=== PATIENT | male | born 1950 | race Caucasian/White ===

== ENCOUNTER 2016-08-20 18:47 | Inpatient (IN) | payer MEDICAID, OTHER ==
--- NOTE | 2016-08-20 18:55 | EDPHY ---
H & P Stated Complaint: R arm red/swollen, IV drug user Time Seen by Provider: 08/20/16 18:55 - Personal History Current Tetanus/Diphtheria Vaccine: Unsure Current Tetanus Diphtheria and Acellular Pertussis (TDAP): Unsure Tetanus Vaccine Date: <10YRS - Medical/Surgical History Hx Asthma: No Hx Chronic Respiratory Disease: No Hx Diabetes: No Hx Cardiac Disease: No Hx Renal Disease: No Hx Cirrhosis: No Hx Alcoholism: No Hx HIV/AIDS: No Hx Splenectomy or Spleen Trauma: No Other PMH: IV drug abuse - Social History Smoking Status: Current every day smoker Constitutional: Initial Vital Signs Temperature (C) 36.3 C 08/20/16 18:52 Heart Rate 72 08/20/16 18:52 Respiratory Rate 19 08/20/16 18:52 Blood Pressure 106/74 08/20/16 18:52 Allergies/Adverse Reactions: No Known Allergies Allergy (Verified 08/20/16 18:52) Home Medications: Medication Instructions Recorded NK [No Known Home Meds] 08/20/16 Medical Decision Making ED Course/Re-evaluation: CHIEF COMPLAINT: Right arm redness HISTORY OF PRESENT ILLNESS: 65-year-old gentleman whose shoots heroin. He skin popped on the right forearm just distal to the elbow. That was a couple days ago according to him. Now he has some redness of the right lateral upper arm biceps area. He denies any fevers or chills. He denies any chest pain shortness of breath. He denies any other symptoms. REVIEW OF SYSTEMS: A 10 point review of systems was performed and is negative with the exception of the elements mentioned in the history of present illness. PHYSICAL EXAM: HR, BP, O2 Sat, RR. Temp noted General Appearance: Alert, well hydrated, appropriate, and non-toxic appearing. Head: Atraumatic without scalp tenderness or obvious injury Eyes: Pupils equal, round, reactive to light and accommodation, EOMI, no trauma , no injection. Ears: Clear bilaterally, no perforation, normal landmarks Nose: Atraumatic, no rhinorrhea, clear. Throat: There is no erythema or exudates, no lesions, normal tonsils, mucus membranes moist. Neck: Supple, 2+ carotid upstroke, nontender, no lymphadenopathy. Respiratory: No retractions, no distress, no wheezes, and no accessory muscle use. Lungs are clear to auscultation bilaterally. Cardiovascular: Regular rate and rhythm, no murmurs, rubs, or gallops. Bilateral carotid, radial, dorsalis pedis, and posterior tibial pulses intact. Good capillary refill all extremities. Gastrointestinal: Abdomen is soft, nontender, non-distended, no masses, no rebound, no guarding, no peritoneal signs. Musculoskeletal: Normal active ROM of all extremities, atraumatic. Neurological: Alert, appropriate, and interactive. The patient has normal DTRs and non-focal cranial nerves, motor, sensory, and cerebellar exam. Skin: Mild erythema and induration of the right lateral upper biceps area. No obvious fluctuance or abscess. No lymphangitis. No evidence of axillary lymph node adenopathy. No rashes, good turgor, no nodules on palpation. Past medical history: Prior abscesses and heroin abuse Past surgical history: Drainage of skin abscesses Family history: Noncontributory Social history: Single, unemployed, abuses injects IV drugs, drinks alcohol and abuses alcohol, uses marijuana, uses cigarettes. DIAGNOSTICS/PROCEDURES/CRITICAL CARE TIME: Study: Ultrasound of the: right upper extremity Indication: cellulitis and induration rule out abscess Results: US scan of the right upper extremity was obtained. The results of the study are lobulated, deep, and complex abscess of the right upper arm. The study was read by the radiologist, Dr. Alonso. I viewed the images myself on the PACS system. DIFFERENTIAL DIAGNOSIS: Includes but is not limited to abscess, cellulitis, lymphangitis, hematoma MEDICAL DECISION MAKING: This patient is not systemically ill. I have given him a doxycycline 100 mg orally. I do not believe that the upper arm cellulitic indurated area is an abscess but I a.m. ordering an ultrasound to be sure that there is nothing to drain at this time. Patient's abscess is deep, lobulated, and complex per ultrasound. This is not appropriate for I&D in the ED and he will need to go to the OR. Surgeon nandini. 1930: Consulted surgeon Madi, he will assess patient in the ED when he gets out of his current surgery. Departure - Departure Disposition: [facility] Inpatient Acute Clinical Impression: Abscess of right upper extremity Condition: Fair
[2016-08-20] MEDS ORDERED: DOXYCYCLINE HYCLATE 100 MG CAP/TAB PO ONE (19:06)
[2016-08-20] MEDS ORDERED: ERTAPENEM 1 GM in NS 100 ML IV ONE (19:25)
[2016-08-20 19:43] LABS: % IMMATURE GRANULYOCYTES 0.4 % (0.0-1.1); ABSOLUTE IMMATURE GRANULOCYTES 0.05 10^3/uL (0.00-0.10); ADD DIFF? NO; ADD MORPH? NO; ADD SCAN? NO; ATYPICAL LYMPHOCYTE FLAG 10 (0-99); FRAGMENT RBC FLAG 0 (0-99); HEMATOCRIT 42.6 % (40.0-51.0); HEMOGLOBIN 14.2 g/dL (13.7-17.5); LEFT SHIFT FLG 10 (0-99); LIPEMIA HEMOLYSIS FLAG 80 (0-99); MEAN CELL HEMOGLOBIN 29.4 pg (27.9-34.1); MEAN CELL HEMOGLOBIN CONCENTR. 33.3 g/dL (32.4-36.7); MEAN CELL VOLUME 88.2 fL (81.5-99.8); PLATELET CLUMPS FLAG 70 (0-99); PLATELET COUNT 252 10^3/uL (150-400); RED BLOOD CELL COUNT 4.83 10^6/uL (4.40-6.38); RED CELL DISTRIBUTION WIDTH 15.7 % (11.5-15.2)
[2016-08-20 19:52] LABS: INR 1.04 (0.83-1.16); PROTIME(PATIENT) 13.5 SEC (12.0-15.0)
[2016-08-20 19:53] LABS: APTT 27.1 SEC (23.0-38.0)
[2016-08-20 20:02] LABS: ANION GAP 12 mEq/L (8-16); CALCIUM 9.2 mg/dL (8.5-10.4); CARBON DIOXIDE 26 mEq/l (22-31); CHLORIDE 102 mEq/L (97-110); CREATININE 0.7 mg/dL (0.7-1.3); GLOMERULAR FILTRATION RATE > 60; GLUCOSE 110 mg/dL (70-100); POTASSIUM 4.6 mEq/L (3.5-5.2); SODIUM 140 mEq/L (134-144)
--- NOTE | 2016-08-20 20:06 | US ---
Ultrasound Right Upper Extremity Nonvascular History: IV drug abuse with pain and swelling. Suspect abscess. Findings: On ultrasound imaging in the right upper arm lower humerus posterior region, there is a com plex fluid collection measuring 4 x 2.5 x 1.3 cm with a lobulated contour and no vascular flow, appro ximately 9 mm deep to the skin, consistent with an abscess. Impression: Right upper arm complex abscess measuring 4 x 2.5 x 1.3 cm. Findings and recommendations discussed with emergency department physician, Floyd Mayberry MD at 19: 34 hours on August 20, 2016. Final report concurs with initial preliminary interpretation.
[2016-08-20] MEDS ORDERED: IOPAMIDOL (ISOVUE-300) 100 ML BTL IV ONE (20:52)
--- NOTE | 2016-08-20 21:54 | CT ---
CT Right Upper Extremity With Intravenous Contrast History: Right upper arm abscess, IVDA. Technique: Axial computed tomographic images of the right upper arm were obtained after the uneventfu l intravenous administration of 90 mL Isovue-300 contrast. Dose reduction technique utilized. Findings: Along the anterolateral aspect of the distal upper arm superficial lateral to the distal hu merus, there is a complex fluid collection with peripheral enhancement and at least bilobed collectio n, measuring a total of 29 x 24 x 15 mm, consistent with abscess recently identified on ultrasound. T his appears probably within the lateral biceps muscle region. There is subcutaneous edema. No definit e evidence of osteomyelitis. Incidental note of partial visualization of centrilobular emphysema in the right lung. Impression: 1. Right upper arm distal lateral intramuscular 29 x 24 x 15 mm complex fluid collection consistent w ith abscess. 2. Centrilobular emphysema. Findings and recommendations discussed with emergency department physician, Floyd Mayberry MD at 214 5 hours on August 20, 2016. Final report concurs with initial preliminary interpretation.
[2016-08-20] MEDS ORDERED: LR 1,000 ML IV SCH (22:00)
[2016-08-20] MEDS: ACETAMINOPHEN 500 MG TAB PO SCH (22:35)
--- NOTE | 2016-08-20 22:43 | GHP ---
[f rep st] PREOP HISTORY AND PHYSICAL DATE OF ADMISSION: 08/20/2016 ADMITTING DIAGNOSIS: Subcutaneous abscess secondary to skin popping for heroin administration. The patient is a 65-year-old white male who at age 16, after [place], became addicted to heroin. He has been on and off heroin since that time. He was off for a maximum of 3 years at one point. He has tried methadone without success. He has a history of 5 abscesses which have been drained in the past. As he has used up most of his veins over the years, he does resort to skin popping at this point. He last injected on Sunday. He said he was concerned there might be contamination to his drug as there was a film on the surface. As of Sunday he noticed a swelling in his right distal forearm. It became red today around 3 to 4 o'clock. It was only increased a little bit in size in the last 24 hours. He came to the emergency room for evaluation. He was evaluated by Dr. Floyd Mayberry. Dr. Mayberry found a small pocket of pus with ultrasound examination. I was asked to come and see the patient. SOCIAL HISTORY: He smokes 1 pack per day and has done so since age 16. He does not drink. He does not use other medications except occasional marijuana. ALLERGIES: He has no known drug allergies. MEDICATIONS: He is not taking medications. PAST SURGICAL HISTORY: He has had no prior surgery. PAST MEDICAL HISTORY: No history of rheumatic fever, tuberculosis, hepatitis, HIV or transfusions. REVIEW OF SYSTEMS: He is missing multiple teeth. Several broken off at the gum line. He has 1 lower left incisor remaining. Review of systems is otherwise negative. No limits in his activities. No history of steroid use. PHYSICAL EXAMINATION: GENERAL: He is awake, alert, pleasant and conversant. HEAD: Skull is normocephalic and atraumatic. LYMPHATIC: There is no cervical , supraclavicular, axillary or inguinal lymphadenopathy. LUNGS: Clear to auscultation. BACK: Unremarkable except for a 4 cm lipoma below the tip of his right scapula. CARDIAC: S1, S2 normal. There is no murmur at this time. ABDOMEN: Soft and nontender. SKIN: He occasionally shoots up in his buttocks. No abscesses are detected there. There are no abscesses on his abdomen. He does not used his abdomen for injections. EXTREMITIES: His lower extremities are unremarkable. There are several places where his arms have had I and D for abscesses in the past. VITAL SIGNS: His temperature is 37.1. His heart rate 86, his blood pressure is 97/63. LABORATORY DATA: His white count is 14.3 with 79% neutrophils. His INR is 1. Blood cultures have been obtained. CAT scan does show a small pocket. At this point, I am going to treat him with IV antibiotics and topical heat overnight and reassess in the morning for possible drainage. /[id number]/MODL MTDD
[2016-08-20] MEDS: KETOROLAC 30 MG/1 ML SDV IVP SCH (22:53)
[2016-08-21] MEDS: ACETAMINOPHEN 500 MG TAB PO SCH ×3 (05:29→22:02)
[2016-08-21] MEDS: KETOROLAC 30 MG/1 ML SDV IVP SCH ×3 (05:30→17:46)
[2016-08-21 07:01] LABS: ANION GAP 7 mEq/L (8-16); CALCIUM 8.8 mg/dL (8.5-10.4); CARBON DIOXIDE 24 mEq/l (22-31); CHLORIDE 106 mEq/L (97-110); CREATININE 0.7 mg/dL (0.7-1.3); GLOMERULAR FILTRATION RATE > 60; GLUCOSE 94 mg/dL (70-100); POTASSIUM 4.8 mEq/L (3.5-5.2); SODIUM 137 mEq/L (134-144)
[2016-08-21 08:23] LABS: % IMMATURE GRANULYOCYTES 0.4 % (0.0-1.1); ABSOLUTE IMMATURE GRANULOCYTES 0.05 10^3/uL (0.00-0.10); ADD DIFF? NO; ADD MORPH? NO; ADD SCAN? NO; ATYPICAL LYMPHOCYTE FLAG 0 (0-99); FRAGMENT RBC FLAG 0 (0-99); HEMATOCRIT 39.3 % (40.0-51.0); LEFT SHIFT FLG 10 (0-99); LIPEMIA HEMOLYSIS FLAG 80 (0-99); MEAN CELL HEMOGLOBIN 28.8 pg (27.9-34.1); MEAN CELL HEMOGLOBIN CONCENTR. 33.1 g/dL (32.4-36.7); MEAN CELL VOLUME 86.9 fL (81.5-99.8); MEAN PLATELET VOLUME 10.8 fL (8.7-11.7); PLATELET CLUMPS FLAG 30 (0-99); PLATELET COUNT 231 10^3/uL (150-400); RED BLOOD CELL COUNT 4.52 10^6/uL (4.40-6.38); RED CELL DISTRIBUTION WIDTH 15.6 % (11.5-15.2)
--- NOTE | 2016-08-21 08:43 | SOAPPROG ---
SOAP Progress Note Assessment/Plan: PAD#1 08/21/2016 Assessment: Afebrile, wbc down 14-13k, erythema less. CT last night showed an ~ 1 cm pocket x2 withdrawal will be an issue Plan: OR to drain today Subjective: I feel about the same. I am concerned about withdrawing Objective: Vital Signs Temp Pulse Resp BP Pulse Ox 36.7 C 68 16 103/64 93 08/21/16 07:43 08/21/16 08:00 08/21/16 08:00 08/21/16 07:43 08/21/16 08:00 Laboratory Results 08/21/16 08:10 08/21/16 05:57 08/20/16 08/21/16 08/22/16 05:59 05:59 05:59 Intake Total 614 150 Output Total 400 Balance 214 150 PT 13.5 SEC (12.0-15.0) 08/20/16 19:37 INR 1.04 (0.83-1.16) 08/20/16 19:37 - Time Spent With Patient Time Spent With Patient: 15 - Pending Discharge Pending Discharge Within 24 Hours: No Pending Discharge Within 48 Hours: No Physical Exam - Physical Exam General Appearance: alert, mild distress Neck: non-tender, full range of motion, supple Respiratory: chest non-tender, lungs clear, normal breath sounds Cardiac/Chest: regular rate, rhythm Abdomen: normal bowel sounds, non-tender, soft Back: Normal inspection Skin: normal color, warm/dry Lymphatic: no adenopathy Extremities: other (Right upper extermity - erythema greatly reduced, swelling still present, less tender) Neuro/Psych: alert, normal mood/affect, oriented x 3 ICD10 Worksheet Patient Problems: Problems Problem Status Diagnosed Abscess of arm, right Acute Closed fracture of clavicle Active
[2016-08-21] MEDS ORDERED: MIDAZOLAM 2 MG/2 ML VIAL ONE (15:40)
[2016-08-21] MEDS ORDERED: fentaNYL 100 MCG/2 ML INJ ONE (15:41)
[2016-08-21] MEDS ORDERED: PROPOFOL 200 MG/20 ML VIAL ONE (16:02)
[2016-08-21] MEDS ORDERED: fentaNYL 250 MCG/5 ML INJ ONE (16:02)
[2016-08-21] MEDS ORDERED: LIDOCAINE 2% 5 ML SDV ONE (16:03)
[2016-08-21] MEDS ORDERED: LIDOCAINE 2% JELLY 5 ML TUBE ONE (16:03)
--- NOTE | 2016-08-21 16:44 | POSTOPPROG ---
Post Op Note Date of Operation: 08/21/16 Surgeon: Blayne Barraza Anesthesia: LMA Pre-op Diagnosis: abscess right arm Post-op Diagnosis: abscess right arm Indication: abscess right arm Procedure: I&D abscess Findings: abscess right arm Inf/Abcess present in the surg proc area at time of surgery?: Yes Depth: Superfical (Skin SQ) EBL: Minimal Complications: none Specimen(s): abscess fluid for culture
[2016-08-21] MEDS ORDERED: ERTAPENEM 1 GM in NS 100 ML IV SCH ×2 (17:00→20:00)
[2016-08-21] MEDS: ONDANSETRON 4 MG/2 ML VIAL IVP PRN (20:54)
[2016-08-21] MEDS ORDERED: HYDROmorphONE/DILAUDID 1 MG/ML SYR IVP ONE (22:00)
[2016-08-22] MEDS: ONDANSETRON 4 MG/2 ML VIAL IVP PRN (01:20)
--- NOTE | 2016-08-22 05:09 | GOP ---
[f rep st] OPERATIVE REPORT DATE OF OPERATION: SURGEON: Blayne Barraza MD PREOPERATIVE DIAGNOSIS: Right distal lateral upper arm abscess. POSTOPERATIVE DIAGNOSIS: Right distal lateral upper arm abscess. PROCEDURE PERFORMED: Incision and drainage of abscess. The abscess is superficial and it is in the skin and subcutaneous tissues. FINDINGS: Right distal lateral upper arm abscess. SPECIMENS: Purulent material for Gram stain, C and S. ESTIMATED BLOOD LOSS: Minimal. INDICATIONS: Incision and drainage of right distal lateral upper arm abscess. DESCRIPTION OF PROCEDURE: The patient is placed on the operating table in the supine position. He was placed under general anesthesia by laryngeal mask. His right arm was carefully prepped and draped into the field. Note is made of stockinette that had been placed over his hand and wrist. An extremity irma[pe was used. A surgical time-out was carried out and agreed to by all members of the operative team. At the epicenter of the edema, an 18-gauge needle was carefully advanced and approximately 10 cc of pus is removed. This is sent for Gram stain, C and S. A linear skin incision is planned. Bovie electrocautery is used for the incision. Skin and subcutaneous tissues are divided. The pocket is identified and opened widely. Hemostasis again checked and found to be excellent. The wound is well irrigated. The wound is packed moist to dry. A sterile dressing is applied. The patient is transferred to recovery in stable and satisfactory condition. COMPLICATIONS: None. /[id number]/MODL MTDD
[2016-08-22] MEDS: KETOROLAC 30 MG/1 ML SDV IVP SCH ×3 (08:02→12:15)
[2016-08-22] MEDS: ACETAMINOPHEN 500 MG TAB PO SCH ×2 (08:02→14:46)
[2016-08-22 09:12] VITALS: RESP 18
[2016-08-22 12:03] VITALS: BP 113/57; PULSE 62; TEMP 98.1
[2016-08-22 12:42] VITALS: O2SAT 86
--- NOTE | 2016-08-22 13:23 | GDS ---
[f rep st] DISCHARGE SUMMARY HOSPITAL COURSE: Patient was admitted with an abscess in the right elbow area. This was incised and drained in the operating room by Dr. Blayne Barraza. On the day of discharge, the dressing is dash ed, the wound is repacked, and he is instructed to follow up with Dr. Johnson in the surgery clin ic. I recommend that he can leave the packing in for 48 hours, and then needs an appointment for michel ssing change. I see no reason for antibiotics postoperatively. /[id number]/MODL
== END 2016-08-22 15:45 | disposition home or self-care (01) | DRG 603 ==
LOC: OBSVTOIN 21:49 → F3N 22:18 → F1N 08-21 19:49
PROVIDERS: ADMIT Surgery; ATTEND Surgery
PROC: 0H9BXZZ Drainage of Right Upper Arm Skin, External Approach (ICD-10-PCS; principal; 2016-08-21 14:45)
DX: L02.413 Cutaneous abscess of right upper limb (principal); F11.20 Opioid dependence, uncomplicated
CPT/HCPCS: 92523-GN; 96365; 97165-GO; 97535-GO; G8987-GO-CI; G8988-GO-CI; G9168-GN-CJ; G9169-GN-CJ; G9170-GN-CJ; J1170; J1335; J1885; J2250; J2405; J2704; J3010; Q9967

== ENCOUNTER 2018-03-30 23:49 | Emergency (ER) | payer MEDICAID, OTHER ==
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
[2018-03-31 02:32] VITALS: BP 140/78
== END 2018-03-31 02:31 | disposition home or self-care (01) ==
DX: T20.20XA Burn of second degree of head, face, and neck, unspecified site, initial encounter (principal); X04.XXXA Exposure to ignition of highly flammable material, initial encounter; Y92.019 Unspecified place in single-family (private) house as the place of occurrence of the external cause; J44.9 Chronic obstructive pulmonary disease, unspecified; Z99.81 Dependence on supplemental oxygen; F17.210 Nicotine dependence, cigarettes, uncomplicated

== ENCOUNTER 2018-05-26 18:19 | Inpatient (IN) | payer OTHER ==
--- NOTE | 2018-05-26 18:39 | EDPHY ---
H & P Time Seen by Provider: 05/26/18 18:36 HPI/ROS: Chief complaint. Bilateral leg swelling HPI. 59-year-old male presents emergency department with bilateral leg swelling for 3 days. Left worse than right. No injury. Some upper respiratory symptoms. However no chest pain or worsening shortness of breath. He has a history of COPD and is on 2.5 L oxygen /. No similar symptoms previously. Hard to walk because of the swelling. He continues to inject heroin ROS 10 systems were reviewed and negative with the exception of the elements mentioned in the history of present illness Past Medical/Surgical History: COPD, IVDA Social History: Single, daily smoker, no alcohol Smoking Status: Current every day smoker Physical Exam: General Appearance: Alert well-developed male mild distress vital signs significant for initial low blood pressure 81/68. Afebrile Eyes: Pupils equal and round no pallor or injection. ENT, Mouth: Mucous membranes are moist. Respiratory: There are no retractions, lungs are clear to auscultation. Cardiovascular: Regular rate and rhythm. Gastrointestinal: Abdomen is soft and nontender, no masses, bowel sounds normal. Neurological: Awake and alert, sensory and motor exams grossly normal. Skin: Warm and dry, no rashes. Musculoskeletal: Neck is supple nontender. Extremities 2+ edema both legs. Left maybe slightly worse than right. Toes on both feet show cellulitis. Psychiatric: Patient is oriented X 3, there is no agitation. Constitutional: Initial Vital Signs Temperature (C) 36.5 C 05/26/18 18:25 Heart Rate 81 05/26/18 18:25 Respiratory Rate 20 05/26/18 18:25 Blood Pressure 86/62 L 05/26/18 18:25 O2 Delivery Mode Nasal Cannula O2 (L/minute) 6 Allergies/Adverse Reactions: No Known Allergies Allergy (Verified 05/26/18 18:24) Home Medications: Medication Instructions Recorded NK [No Known Home Meds] 05/26/18 Medical Decision Making - Diagnostics EKG Interpretation: EKG interpreted by me shows supraventricular tachycardia with normal intervals and axis. QRS is otherwise normal. No significant ST elevation or depression. Rate 155 Imaging Results: Imaging Impressions Chest X-Ray 05/26/18 18:45 Impression: 1. Development of right lower lung opacity could reflect pneumonia. 2. Suspect low-grade congestive heart failure without pulmonary edema. 3. See above report for additional findings. Results called and discussed with FRANCIS HENSON M.D. on 05/26/2018 at 19:10. reviewed by me and discussed with Dr. Hartman shows RLL infilrate Ultrasound of both legs shows no evidence of DVT Procedures: IV normal saline sepsis workup Septic shock declared. Patient is given 30 milliliters/kilogram fluid bolus. IV Rocephin. ED Course/Re-evaluation: Serial evaluations. Patient remained stable though tachycardic. Blood pressure at 1950 is 109/79 Patient and I discussed laboratory evaluation, treatment plan including recommendation for admission. He expresses understanding and agreement I consulted and discussed the case with Dr. Dao who agrees to the admission. She sees the patient in the emergency department Differential Diagnosis: Pneumonia and sepsis. Patient could have endocarditis and septic emboli to his toes. He has an elevated troponin at 0.22. Also evidence of CHF with elevated BNP - Data Points Laboratory Results: Laboratory Results 05/26/18 19:10 05/26/18 19:10 05/26/18 05/26/18 05/26/18 19:47 19:10 19:10 WBC RBC Hgb Hct MCV MCH MCHC RDW Plt Count MPV Neut % (Auto) Lymph % (Auto) [place] % (Auto) Eos % (Auto) Baso % (Auto) Nucleat RBC Rel Count Absolute Neuts (auto) Absolute Lymphs (auto) Absolute Monos (auto) Absolute Eos (auto) Absolute Basos (auto) Absolute Nucleated RBC Immature Gran % Immature Gran # RBC/WBC/PLT Morphology Platelet Estimate Oval Macrocytes Acanthocytes (Spur) PT 34.9 SEC H SEC (12.0-15.0) INR 3.50 H (0.83-1.16) APTT 34.3 SEC SEC (23.0-38.0) VBG Lactic Acid 5.9 mmol/L H mmol/L (0.7-2.1) Sodium Potassium Chloride Carbon Dioxide Anion Gap BUN Creatinine Estimated GFR Glucose Calcium Total Bilirubin Conjugated Bilirubin Unconjugated Bilirubin POC Troponin I Pending NT-Pro-B Natriuret Pep 05/26/18 05/26/18 19:10 19:10 WBC 12.29 10^3/uL H 10^3/uL (3.80-9.50) RBC 4.82 10^6/uL 10^6/uL (4.40-6.38) Hgb 13.3 g/dL L g/dL (13.7-17.5) Hct 41.9 % % (40.0-51.0) MCV 86.9 fL fL (81.5-99.8) MCH 27.6 pg L pg (27.9-34.1) MCHC 31.7 g/dL L g/dL (32.4-36.7) RDW 18.2 % H % (11.5-15.2) Plt Count 139 10^3/uL L 10^3/uL (150-400) MPV 12.4 fL H fL (8.7-11.7) Neut % (Auto) 89.0 % H % (39.3-74.2) Lymph % (Auto) 4.2 % L % (15.0-45.0) [place] % (Auto) 6.2 % % (4.5-13.0) Eos % (Auto) 0.0 % L % (0.6-7.6) Baso % (Auto) 0.1 % L % (0.3-1.7) Nucleat RBC Rel Count 0.3 % H % (0.0-0.2) Absolute Neuts (auto) 10.94 10^3/uL H 10^3/uL (1.70-6.50) Absolute Lymphs (auto) 0.52 10^3/uL L 10^3/uL (1.00-3.00) Absolute Monos (auto) 0.76 10^3/uL 10^3/uL (0.30-0.80) Absolute Eos (auto) 0.00 10^3/uL L 10^3/uL (0.03-0.40) Absolute Basos (auto) 0.01 10^3/uL L 10^3/uL (0.02-0.10) Absolute Nucleated RBC 0.04 10^3/uL H 10^3/uL (0-0.01) Immature Gran % 0.5 % % (0.0-1.1) Immature Gran # 0.06 10^3/uL 10^3/uL (0.00-0.10) RBC/WBC/PLT Morphology TNP Platelet Estimate DECREASED L (ADEQ) Oval Macrocytes 1+ H Acanthocytes (Spur) 1+ H PT INR APTT VBG Lactic Acid Sodium 134 mEq/L L mEq/L (135-145) Potassium Pending Chloride 95 mEq/L L mEq/L (97-110) Carbon Dioxide 24 mEq/l mEq/l (22-31) Anion Gap 15 mEq/L H mEq/L (6-14) BUN 59 mg/dL H mg/dL (7-23) Creatinine 2.0 mg/dL H mg/dL (0.7-1.3) Estimated GFR 33 Glucose 71 mg/dL mg/dL (70-100) Calcium 7.4 mg/dL L mg/dL (8.5-10.4) Total Bilirubin 2.9 mg/dL H mg/dL (0.1-1.4) Conjugated Bilirubin 2.2 mg/dL H mg/dL (0.0-0.5) Unconjugated Bilirubin 0.7 mg/dL mg/dL (0.0-1.1) POC Troponin I NT-Pro-B Natriuret Pep 79241 pg/mL H pg/mL (0-125) Medications Given: Discontinued Medications Sodium Chloride (Ns) 1,000 mls @ 0 mls/hr IV EDNOW ONE; Wide Open PRN Reason: Protocol Stop: 05/26/18 18:46 Last Admin: 05/26/18 19:21 Dose: 1,000 mls Departure - Departure Disposition: [facility] Inpatient Acute Clinical Impression: Elevated troponin Sepsis Qualifiers: Sepsis type: sepsis due to unspecified organism Qualified Code(s): A41.9 - Sepsis, unspecified organism CHF (congestive heart failure) Qualifiers: Heart failure type: unspecified Heart failure chronicity: unspecified Qualified Code(s): I50.9 - Heart failure, unspecified Condition: Fair Referrals: NONE *PRIMARY CARE P,. [Primary Care Provider] - As per Instructions
[2018-05-26] MEDS ORDERED: NS 1,000 ML IV ONE (18:45)
[2018-05-26 19:39] LABS: INR 3.5 (0.83-1.16); PROTIME(PATIENT) 34.9 SEC (12.0-15.0)
[2018-05-26 19:58] LABS: PLATELET COUNT 139 10^3/uL (150-400)
[2018-05-26] MEDS ORDERED: INSULIN REGULAR HUMAN 100 UNIT/ML UNIT IVP ONE (20:11)
[2018-05-26] MEDS ORDERED: CALCIUM GLUC 10% 1 GM/10 ML VIAL IVP ONE (20:11)
[2018-05-26] MEDS ORDERED: SODIUM POLY SULF 15 GM/60 ML BOTTLE PO ONE (20:11)
[2018-05-26] MEDS ORDERED: ALBUTEROL 3 ML DEYVIAL IH ONE (20:11)
[2018-05-26] MEDS ORDERED: D50W 25 GM/50 ML SYR IVP ONE (20:11)
[2018-05-26] MEDS ORDERED: PROMETHAZINE HCL 25 MG/ML INJ IVP PRN (20:22)
[2018-05-26] MEDS ORDERED: ONDANSETRON DISINTEGRATING 4 MG TAB PO PRN (20:22)
[2018-05-26] MEDS ORDERED: HYDROmorphONE/DILAUDID 1 MG/ML INJ IVP PRN (20:22)
[2018-05-26] MEDS ORDERED: LORazepam 2 MG/ML INJ IVP PRN (20:22)
[2018-05-26] MEDS ORDERED: ALBUTEROL 3 ML DEYVIAL IH PRN (20:22)
[2018-05-26] MEDS ORDERED: ONDANSETRON 4 MG/2 ML VIAL IVP PRN (20:22)
[2018-05-26] MEDS ORDERED: oxyCODONE IR 5 MG TAB PO PRN (20:22)
[2018-05-26] MEDS ORDERED: HYDROCODONE/APAP 5/325 TAB PO PRN (20:22)
--- NOTE | 2018-05-26 20:22 | CPEKG ---
Test Reason : OPEN Blood Pressure : / mmHG Vent. Rate : 155 BPM Atrial Rate : 153 BPM P-R Int : 090 ms QRS Dur : 099 ms QT Int : 308 ms P-R-T Axes : 000 147 024 degrees QTc Int : 495 ms Supraventricular tachycardia Abnormal lateral Q waves Anterior infarct, old Repolarization abnormality, prob rate related Confirmed by Jatinder Willis ([id number]) on 05/26/2018 8:21:46 PM Referred By: Confirmed By:Jatinder Willis
[2018-05-26] MEDS ORDERED: NS 1,800 ML IV ONE (20:33)
[2018-05-26] MEDS ORDERED: HYDROmorphONE/DILAUDID 2 MG/ML INJ IVP PRN (21:00)
--- NOTE | 2018-05-26 21:57 | PDGENHP ---
History and Physical - Chief Complaint weakness, leg swelling and pain - History of Present Illness 67 yo M with PMH that includes IVDA x 30 years with some prior issues with skin abscess presenting with complaints of significant weakness for the past several days along with pain and swelling in his feet and legs and skin breakdown around his toes. Patient notes that he has been so weak for the last couple of days that he has been hardly able to get up off of the floor. He has not been able to eat or drink much due to his weakness. He has noticed subjective fevers and chills. On my evaluation he is noted to be extremely dirty with his hands and face essentially stained black as if with soot. He has scabbed lesions covering his upper and lower extremities. He notes that he has also been short of breath and occasionally coughing. History Information - Allergies/Home Medication List Allergies/Adverse Reactions: No Known Allergies Allergy (Verified 05/26/18 20:21) Home Medications: NK [No Known Home Meds] 05/26/18 [Last Taken Unknown] I have personally reviewed and updated: family history, medical history, social history, surgical history - Past Medical History COPD Additional medical history: IVDA x 30 years. opioid dependence - Surgical History Reports: no pertinent surgical hx - Family History Positive for: non-pertinent - Social History Smoking Status: Current every day smoker Alcohol Use: Occasionally Drug Use: Heroin Additional social history: lives independently in a home Review of Systems Review of Systems: ROS: 10pt was reviewed & negative except for what was stated in HPI & below Physical Exam Physical Exam: Temp Pulse Resp BP Pulse Ox 36.6 C 146 H 16 104/80 95 05/26/18 20:00 05/26/18 21:18 05/26/18 21:18 05/26/18 21:18 05/26/18 21:18 O2 (L/minute) 6 Constitutional: chronically ill appearing, unkempt Eyes: PERRL, anicteric sclera Ears, Nose, Mouth, Throat: hearing normal, poor dentition, dry mucous membranes Cardiovascular: no murmur, rub, or gallop, tachycardia, edema Respiratory: reduced air movement, inspiratory crackles, respiratory distress Gastrointestinal: normoactive bowel sounds, soft, non-tender abdomen Genitourinary: no bladder tenderness Skin: warm, erythema, other (bilateral toes ) Musculoskeletal: no muscle tenderness Neurologic: AAOx3 Psychiatric: interacting appropriately, not anxious, not encephalopathic Lab Data & Imaging Review 05/26/18 19:10 05/26/18 19:10 WBC 12.29 10^3/uL (3.80-9.50) H 05/26/18 19:10 RBC 4.82 10^6/uL (4.40-6.38) 05/26/18 19:10 Hgb 13.3 g/dL (13.7-17.5) L 05/26/18 19:10 Hct 41.9 % (40.0-51.0) 05/26/18 19:10 MCV 86.9 fL (81.5-99.8) 05/26/18 19:10 MCH 27.6 pg (27.9-34.1) L 05/26/18 19:10 MCHC 31.7 g/dL (32.4-36.7) L 05/26/18 19:10 RDW 18.2 % (11.5-15.2) H 05/26/18 19:10 Plt Count 139 10^3/uL (150-400) L 05/26/18 19:10 MPV 12.4 fL (8.7-11.7) H 05/26/18 19:10 Neut % (Auto) 89.0 % (39.3-74.2) H 05/26/18 19:10 Lymph % (Auto) 4.2 % (15.0-45.0) L 05/26/18 19:10 [place] % (Auto) 6.2 % (4.5-13.0) 05/26/18 19:10 Eos % (Auto) 0.0 % (0.6-7.6) L 05/26/18 19:10 Baso % (Auto) 0.1 % (0.3-1.7) L 05/26/18 19:10 Nucleat RBC Rel Count 0.3 % (0.0-0.2) H 05/26/18 19:10 Absolute Neuts (auto) 10.94 10^3/uL (1.70-6.50) H 05/26/18 19:10 Absolute Lymphs (auto) 0.52 10^3/uL (1.00-3.00) L 05/26/18 19:10 Absolute Monos (auto) 0.76 10^3/uL (0.30-0.80) 05/26/18 19:10 Absolute Eos (auto) 0.00 10^3/uL (0.03-0.40) L 05/26/18 19:10 Absolute Basos (auto) 0.01 10^3/uL (0.02-0.10) L 05/26/18 19:10 Absolute Nucleated RBC 0.04 10^3/uL (0-0.01) H 05/26/18 19:10 Immature Gran % 0.5 % (0.0-1.1) 05/26/18 19:10 Immature Gran # 0.06 10^3/uL (0.00-0.10) 05/26/18 19:10 RBC/WBC/PLT Morphology TNP 05/26/18 19:10 Platelet Estimate DECREASED (ADEQ) L 05/26/18 19:10 Oval Macrocytes 1+ H 05/26/18 19:10 Acanthocytes (Spur) 1+ H 05/26/18 19:10 ESR 22 MM/HR (0-20) H 05/26/18 19:10 PT 34.9 SEC (12.0-15.0) H 05/26/18 19:10 INR 3.50 (0.83-1.16) H 05/26/18 19:10 APTT 34.3 SEC (23.0-38.0) 05/26/18 19:10 VBG Lactic Acid 5.9 mmol/L (0.7-2.1) H 05/26/18 19:10 Sodium 134 mEq/L (135-145) L 05/26/18 19:10 Potassium 6.4 mEq/L (3.3-5.0) H* 05/26/18 19:10 Chloride 95 mEq/L (97-110) L 05/26/18 19:10 Carbon Dioxide 24 mEq/l (22-31) 05/26/18 19:10 Anion Gap 15 mEq/L (6-14) H 05/26/18 19:10 BUN 59 mg/dL (7-23) H 05/26/18 19:10 Creatinine 2.0 mg/dL (0.7-1.3) H 05/26/18 19:10 Estimated GFR 33 05/26/18 19:10 Glucose 71 mg/dL (70-100) 05/26/18 19:10 Calcium 7.4 mg/dL (8.5-10.4) L 05/26/18 19:10 Total Bilirubin 2.9 mg/dL (0.1-1.4) H 05/26/18 19:10 Conjugated Bilirubin 2.2 mg/dL (0.0-0.5) H 05/26/18 19:10 Unconjugated Bilirubin 0.7 mg/dL (0.0-1.1) 05/26/18 19:10 ALT 566 IU/L (21-72) H 05/26/18 19:10 POC Troponin I 0.22 ng/mL (0.00-0.08) H 05/26/18 19:47 C-Reactive Protein 76.5 mg/L (<10.0) H 05/26/18 19:10 NT-Pro-B Natriuret Pep 31761 pg/mL (0-125) H 05/26/18 19:10 Visualized and Interpreted Chest x-ray results: Yes Chest X-Ray results: infiltrate Visualized and Interpreted EKG results: Yes EKG additional interpertation: svt Assessment & Plan Assessment: CHF (congestive heart failure) (Acute) Elevated troponin (Acute) Sepsis (Acute) 67 yo M with hx of 30 years of IVDA presenting with septic shock in setting of severe skin infection of bilateral lower extremities as well as acute hypoxic respiratory failure, renal failure, and hepatic dysfunction as well as likely acute CHF # septic shock: with multiple sources of infection potentially contributing but very concerning appearance to lower extremities and toes, ? septic emboli contributing. Will start on vanc/zosyn and monitor in ICU, lactate already trending down will continue to trend. # cellulitis with toe wounds: discussed with gen surgery as concerning that these will require debridement, will start with plain films of the feet for now , abx as above, ID consulted. # acute hypoxic respiratory failure: patient now requiring 10L oxymask, CXR very rotated and poor film but concerning for RLL pna, there is also concern of acute CHF as next but no clear pulmonary edema on cxr. Will get CT for further evaluation. Abx as above. # acute chf: with very elevated bnp, bilateral lower extremity edema and cxr c/ w chf, given IVDA also concerning for endocarditis, no clear murmur on exam but patient extremely tachy. Will get echo in am. Caution with IVF as able # elevated trop: as above, continue to trend, will ask cardiology to consult in am # IVDA, opioid abuse and dependency: patient abusing heroin x 30 years, has scattered skin lesions that he denies are related to use and some occasional hx with abscess in the past, monitoring for withdrawal, echo as above # jb: in the setting of shock and poor tissue perfusion, IVF, bladder scan, trend overnight # hepatic dysfunction: with significantly elevated transaminases as well as INR of 3.5, query ischemic hepatitis, will check tylenol levels and hep serologies and trend # hyperkalemia: in the setting of jb, has received calcium, albuterol, kayexalate and will trend # FC--reviewed with patient, he would like his sister Jimena Miguel to be his MDPOA if he is unable to make decisions, she resides in [place] # IP status, patient critically ill requiring ICU level care, > 60 min of critical care time spent evaluating labs, imaging and reviewing care plan with nursing and heritage consultant MDs as well as at bedside evaluation and care
[2018-05-26] MEDS: NS 1,000 ML IV SCH (22:29)
[2018-05-26] MEDS: PIPERACILLIN/TAZO 3.375 GM/DEX 50 ML IV SCH (23:29)
[2018-05-27] MEDS: LORazepam 0.5 MG TAB PO PRN (00:51)
[2018-05-27] MEDS ORDERED: HYDROmorphONE/DILAUDID 2 MG/ML INJ IVP ONE (01:30)
[2018-05-27] MEDS ORDERED: NS 1,000 ML IV ONE (01:32)
[2018-05-27] MEDS: MUPIROCIN 2% 22 GM OINT TP PRN (01:39)
--- NOTE | 2018-05-27 02:30 | GCON ---
REASON FOR CONSULTATION: Possible foot injury/ischemia. HISTORY: The patient is a 67-year-old male who has had a long history of IV drug abuse. He states he does live at home and does have a carpeted floor. Nonetheless, his feet appear as if they have not been bathed in months. There are scaling stasis changes on both lower legs. There is a lot of dirt and eschar on the feet. I was asked to see him for evaluation for infection that might require digital amputation. X-rays were obtained, which show noted no evidence of air in the tissue. Approximately 30 minutes was spent scrubbing and debriding his lower extremities. Toenails are carefully trimmed. Once this was completed, he is found to have good capillary refill on all toes. His left foot has an ulcer over the posterior aspect of the calcaneus and a small abscess which was drained on the medial aspect of the calcaneus. Over all toes, there are areas of eschar, which were debrided back to good tissue. Bactroban is placed as that will penetrate any intact eschar and minimize any infection. Care was taken to place 4 x 4's between all toes to prevent maceration. 4 x 4's were placed over all areas of Bactroban. A Kerlix roll was used to dress the foot. Toe nails were trimmed. The right foot similarly has areas of bullae and eschar over the dorsal surface of the toes. This leg is also aggressively cleansed. Again, Bactroban is placed over all eschar to facilitate wound care. Again, 4 x 4's were placed between the toes and overall raw surfaces. This was also wrapped with a Kerlix roll. Toe nails were trimmed. The feet appear to be viable. There is no evidence of a deep infection. There is a 2+ edema of the forefoot. With good capillary refill and no obvious deep infection, I feel topical treatment is the most important next step. Bactroban is used as it will penetrate intact eschar. Cleansing 3 times a day with soap and water and replacing the dressing I feel is appropriate for the near term. We need to encourage him to wear socks and shoes when he is walking either about the house or outside. /[id number]/MODL MTDD
[2018-05-27 06:00] LABS: HEPATITIS A ANTIBODY IGM (BCH) NEGATIVE (NEGATIVE); HEPATITIS B CORE AB IGM NEGATIVE (NEGATIVE); HEPATITIS B SURFACE ANTIGEN NEGATIVE (NEGATIVE); HEPATITIS C ANTIBODY TOTAL REACTIVE (NEGATIVE)
[2018-05-27] MEDS ORDERED: ALTEPLASE 2 MG VIAL IVP PRN (06:05)
--- NOTE | 2018-05-27 06:43 | CPEKG ---
Test Reason : OPEN Blood Pressure : / mmHG Vent. Rate : 166 BPM Atrial Rate : 160 BPM P-R Int : 186 ms QRS Dur : 098 ms QT Int : 312 ms P-R-T Axes : 000 108 -45 degrees QTc Int : 519 ms Atrial fibrillation with rapid V-rate Paired ventricular premature complexes Lateral infarct, age indeterminate Anterior infarct, acute (LAD) Artifact limits interpretation to some extent Confirmed by Lindsay Thornton ([id number]) on 05/27/2018 6:43:07 AM Referred By: Confirmed By:Lindsay Thornton
--- NOTE | 2018-05-27 09:41 | ASMTCMCOM ---
CM Note CM Note Notes: 67yo male admitted for Sepsis, PNA, Leg swelling-cellulitis, R arm abscess. He has a Hx of IVDA x 30yrs-heroin, Opioid dependent, a smoker, COPD, CHF. Patient came in very dirty and had to be scrubbed in order to be examined. Therapies will need to eval his mobility. CM to follow. Date Signed: 05/27/2018 09:40 AM Electronically Signed By:Sonia Diego LCSW
--- NOTE | 2018-05-27 10:18 | PDMN ---
Medical Necessity Medical necessity: Pt meets IP criteria per MD and MCG M-160; est los > 2mn for ongoing management and tx of septic shock in the setting of severe skin infection of bilateral lower extremities as well as acute hypoxic respiratory failure, renal failure, and hepatic dysfunction as well as likely acute CHF; pt critically ill requiring ICU level care, further workup and monitoring. Hx IVDA x 30 years.
[2018-05-27] MEDS: PIPERACILLIN/TAZO 3.375 GM/DEX 50 ML IV SCH ×3 (10:27→18:36)
[2018-05-27 11:30] LABS: INR 2.85 (0.83-1.16); PROTIME(PATIENT) 29.8 SEC (12.0-15.0)
[2018-05-27 11:37] LABS: PLATELET COUNT 89 10^3/uL (150-400)
[2018-05-27] MEDS ORDERED: VANCOMYCIN HCL/NORMAL SALINE 250 ML IV SCH (13:00)
--- NOTE | 2018-05-27 13:13 | GPN ---
DATE OF PROCEDURE: 05/27/2018 PROCEDURE PERFORMED: Subclavian triple-lumen central line placement. INDICATION: Septic shock in a patient with pneumonia and skin ulcerations with hypotension and dehyd ration. DESCRIPTION OF PROCEDURE: The procedure was performed in the intensive care unit. Informed consent was obtained verbally from the patient. He was not able to sign. 1% lidocaine was used for local an esthesia under the right clavicle. A triple-lumen catheter was put in using standard techniques afte r sterilization of the skin with chlorhexidine. There were no complications. The subclavian vein wa s easily found and cannulated. The triple-lumen catheter was sutured in place. There was good blood return from all 3 ports. Chest x-ray following the procedure, documented the line to be in good pos ition. There was no evidence of a pneumothorax. Persistent infiltrates were noted. ASSESSMENT: Successful central line placement. /[id number]/MODL
--- NOTE | 2018-05-27 13:20 | ECHO ---
[email or web address] [address] Main: [phone] Fax: [email or web address] Echocardiogram Name: EMILEE YUNG MR#: [id number] Study Date: 05/27/2018 Study Time: 07:58 AM Date of : 1950 Age: 67 year(s) Height: 172.7 cm (68 in.) Weight: 58.97 kg (130 lb.) BSA: 1.7 m2 Gender: Male Examination: Echo Indication: Question septic emboli/hx of IVDA Image Quality: Technically Difficult Contrast: Requested by: Samuel Dao BP: 109 mmHg/67 mmHg Heart Rate: Rhythm: Indication: Question septic emboli/hx of IVDA Procedure Staff Churn Drill Operator: Jocelyne Bahena RDCS Reading Physician: Ras Lilly MD Requesting Provider: Conclusions: No pericardial effusion. Preserved left ventricular systolic function. Flattening of the septum consistent with right ventricular volume overload. Dialted right ventricle. Mild mitral regurgitation. Mild to moderate tricuspid valve regurgitation. Measurements: Chambers Valvular Assessment AV/MV Valvular Assessment TV/PV Normal Normal Normal Name Value Range Name Value Range Name Value Range Ao Beryl (MM): 3.8 cm (2.2 cm-3.7 MV E Vmax: 0.50 m/s ( - ) TR Vmax: 2.35 mm/s ( - ) cm) MV A Vmax: 0.49 m/s ( - ) TR PGmax: 22 mmHg ( - ) IVSd (2D): 0.9 cm (0.6 cm-1.1 MV E/A: 1.02 ( - ) syst. PAP: 32 mmHg ( - ) cm) LVDd (2D): 4.5 cm (4.2 cm-5.9 cm) LVDs (2D): 2.9 cm (2.1 cm-4 cm) LVPWd (2D): 0.9 cm (0.6 cm-1 cm) LVOTd 1.9 cm 1.9 cm mm LVEF (2D): 65 (>=54 %) Continued Measurements: Chambers Valvular Assessment AV/MV Valvular Assessment TV/PV Name Value Name Value Name Value LADs: 3.5 cm MV E' Septal: 0.06 m/s CVP (est.): 10 mmHg MV E/E' Septal: 8.90 MV E/E' Lateral: 5.40 MR Vena Contracta: 0.3 cm Patient: EMILEE YUNG Study Date: 05/27/2018 Page 1 of 2 07:58 AM Additional Vessels Name Value Inferior Vena Cava: 2.7 cm Findings: Left Ventricle: The left ventricle cavity is small. Unable to assess diastolic dysfunction. LV septal motion consistent with right sided volume overload.. Right Ventricle: Moderately dilated right ventricle. Severely reduced RV function. Right Atrium: The right atrium is moderately dilated. Mitral Valve: Mild mitral valve leaflet calcification is present. Mild mitral valve regurgitation is present. Aortic Valve: The aortic valve is normal in appearance and function. Unable to obtain accurate AV velocity.. Tricuspid Valve: The tricuspid valve is normal in appearance and function. Mild to moderate tricuspid valve regurgitation. Pulmonic Valve: The pulmonic valve is normal in appearance and function. Mild to moderate pulmonic valve regurgitation. Aorta: The aorta is normal. Pericardium: No pericardial effusion. (No Signature Object) Patient: EMILEE YUNG Study Date: 05/27/2018 Page 2 of 2 07:58 AM [id number]
--- NOTE | 2018-05-27 14:35 | HOSPPROG ---
Hospitalist Progress Note Assessment/Plan: Subjective Follow-up on septic shock. Case reviewed with General surgery as well as Pulmonary Critical Care Medicine today. In the morning his nurse and I discussed he lost IV access the patient went into AFib with RVR with rates in the 150s to 170s. His blood pressures were also marginal with systolics in the 80s. I reviewed the issue with Dr. Molina and he placed a central line. After starting IV fluids the patient's heart rate did referred out of atrial fibrillation back to sinus rhythm. The patient is fatigued appearing but was arousable and able to give consent for the central line. Objective Vitals as detailed below Exam General-patient is fatigued appearing but arousable, very unkempt Heart-tachycardic irregular on the monitor. Lungs-normal respiratory effort, mild coarseness bilaterally Abdomen-soft nontender nondistended -Miles catheter placed with dark yellow urine Skin-mild erythema on both lower extremities open skin on dorsal aspect of his toes bilaterally, he was examined without his bandages in place. Labs as detailed below Assessment and plan Severe sepsis with shock-patient's blood pressure thus far has been fluid responsive. Continue with maintenance IV fluids after full pulses from today. He may have multiple sources including cellulitis as well as pneumonia. Continue empiric antibiotic coverage with Zosyn and vancomycin. Acute hypoxic respiratory failure-patient does have chronic hypoxic respiratory failure secondary to COPD on a baseline oxygen need of 2.5 L. Continue with scheduled nebulizers. Pneumonia-possible as noted on CT chest x-ray. Continue empiric coverage. Cellulitis-patient has open skin lesions on dorsal aspect of bilateral foot and toes. Monitor erythema with current antibiotic therapy. Acute on chronic heart failure-suspected. Echocardiogram has been ordered and completed today. Await final results. Acute kidney injury-likely secondary to sepsis. Continue to trend with IV fluids. Transaminitis-I suspect patient likely has a baseline elevation of his liver enzymes secondary to chronic hepatitis-C but with an acute rise secondary to sepsis. Continue to trend. Hyperkalemia-improved to 4.8 today. Atrial fibrillation with rapid ventricular response-he reverted back to sinus rhythm after receiving IV fluids. Continue telemetry monitoring as with concurrent illnesses he could reverted back into a rapid response. In review of his old records I do not see any prior history of atrial fibrillation. Tobacco use-nicotine patch if desired. DVT prophylaxis-heparin. Disposition-case discussed in rounds today. We will need to look in the patient 's current home situation and determine if this is adequate for him at discharge. Objective: Vital Signs Temp Pulse Resp BP Pulse Ox 37.2 C 88 9 L 100/71 93 05/27/18 04:00 05/27/18 13:00 05/27/18 13:00 05/27/18 13:00 05/27/18 13:00 Laboratory Results 05/27/18 11:00 05/27/18 11:00 05/26/18 05/27/18 05/28/18 05:59 05:59 05:59 Intake Total 3735 Balance 3735 PT 29.8 SEC (12.0-15.0) H 05/27/18 11:00 INR 2.85 (0.83-1.16) H 05/27/18 11:00 ICD10 Worksheet Patient Problems: Problems Problem Status Onset CHF (congestive heart failure) Acute Elevated troponin Acute Sepsis Acute Closed fracture of clavicle Active Abscess of arm, right Acute
[2018-05-27] MEDS ORDERED: NICOTINE 14 MG/24 HR PATCH TD PRN (14:41)
[2018-05-27] MEDS ORDERED: PHYTONADIONE 100 MCG TAB PO ONE (16:11)
[2018-05-27] MEDS: NS 1,000 ML IV SCH (16:14)
--- NOTE | 2018-05-27 16:30 | ASMTCMCOM ---
CM Note CM Note Notes: This CM made an Adult Protection Report due to self neglect very dirty, undernourished. Patient wanted his sister to make medical decisions. Contact made of sister-Jimena Miguel- [id number] [id number], [place] [address]. She would happy to serve as her brother's MPOA. Patient too sleepy to sign forms this afternoon, will try again Sunday. Date Signed: 05/27/2018 04:29 PM Electronically Signed By:Sonia Diego LCSW
--- NOTE | 2018-05-27 19:04 | GCON ---
PULMONARY/CRITICAL CARE CONSULTATION REASON FOR CONSULTATION: Sepsis, cellulitis, pneumonia in a malnourished patient with a history of I V drug abuse and failure to thrive. HISTORY: The patient is a 67-year-old gentleman who, by report, has been doing IV drugs for many yea rs. He presented to the emergency department with increasing weakness and pain and swelling in his f eet and legs. He apparently has been crawling around on the floor, not eating and not drinking. He was extremely dirty on admission. A variety of lesions over his upper and lower extremities were pre sent, with ulcerative lesions across the top of all his toes. Chest x-ray and CT scan of the chest showed right-sided atelectasis or infiltrate and a right-sided p leural effusion. He was seen by Surgery, who cleaned and debrided the areas of ulceration above his toes and on the back of his left foot. Bactroban was placed, and the feet were dressed. He was sept ic on admission, with tachycardia and tachypnea, leukocytosis, and an elevated lactate of 5.9. Other findings included elevated liver function studies, markedly high proBNP, and an elevated C-reactive protein. CT scan of the chest did not show evidence of septic pulmonary emboli. He was placed on hi gh-flow oxygen and admitted to the intensive care unit. PAST MEDICAL HISTORY: Unclear/unknown. He has been on oxygen at home, is a chronic smoker and has p resumed significant COPD. He was recently admitted for facial barrios while trying to smoke on oxygen. DRUG ALLERGIES: No known drug allergies. SOCIAL HISTORY: The patient is single, apparently lives in an apartment by himself. He smokes daily . Alcohol is unknown. He is not currently giving a coherent history. FAMILY HISTORY: Noncontributory. REVIEW OF SYSTEMS: Unobtainable at this time. PHYSICAL EXAMINATION: GENERAL: Malnourished gentleman who is somnolent but does arouse. He is vagu e in terms of trying to answer questions. VITAL SIGNS: Blood pressure is 85/60, heart rate 160, wit h SVT versus sinus tachycardia. He is on an oxygen mask with saturations of 97%. He is afebrile. R espiratory rate is 16. HEENT: Remarkable for dry mucous membranes. CHEST: Reveals decreased breat h sounds bilaterally, with dullness and consolidative changes at the right base. Central airway elsy estion is present. Expiratory phase is prolonged. Scattered wheezes are present. HEART: Tachycard ic. A systolic murmur is present with a soft gallop. P2 is likely increased. ABDOMEN: Relatively firm, but nontender. Bowel sounds are present but diminished. : Miles catheter is in place, with good urine output. EXTREMITIES: The feet are dressed bilaterally. The skin is remarkable for modesto sions, ecchymoses, and significant layering of dirt. NEUROLOGIC: Examination is grossly nonfocal. He appears to be weak. He is hypertonic at times. He has contractures of his upper extremities at t he elbows. DATABASE: Radiologic studies are as outlined above and include the CT scan of the of the chest, a ne gative lower extremity venous Doppler ultrasound and negative foot x-rays. Cardiac echo shows a norm al ejection fraction, with some diastolic dysfunction, a moderately dilated right ventricle and decre ased right ventricular function, a normal tricuspid valve with moderate tricuspid regurgitation, larisa g with mild to moderate pulmonic valve regurgitation. Right ventricular systolic pressures were near normal at 32. No pericardial effusion was seen. Laboratory: White blood cell count is 10,000, hematocrit 35, platelets 89,000. INR on admission was 3.5 and was decreased today at 2.85. Lactate today is 1.3, down from 5.9 on admission. Sodium is 1 39, potassium 4.4, BUN 55, with a creatinine of 1.5, down from 59 and 2.0 on admission. Glucose is 6 4, calcium 6.9, magnesium 1.6, phosphorus 5.9. Total bilirubin is 1.9. AST and ALT are both signifi cantly elevated. Troponin is 0.16. C-reactive protein is 76 with a BNP of 19,400. Albumin is 2.2. Urinalysis on admission showed some red cells but was otherwise negative. Salicylates and acetamino phen were negative. Hepatitis serology was positive for hepatitis C. ASSESSMENT: 1. Sepsis. The patient came in with sepsis, likely secondary to cellulitis. Pneumonia cannot be ex cluded and is certainly possible. He is being covered with vancomycin and Zosyn. Appropriate fluids have been given. Lactate, elevated on admission, has come down. Intravenous fluids are being sharon nued. 2. Cellulitis. The patient has severe cellulitis, primarily involving the feet bilaterally. Debrid ement has been accomplished by Surgery, and appropriate topical antibiotics are being applied. This is associated with significant pain. Appropriate pain medications have been ordered, including IV Di laudid and p.o. hydrocodone. 3. Chronic obstructive pulmonary disease. This is secondary to a long history of tobacco abuse. He continues to smoke. The severity of his disease is unknown; however, it would appear to be either m oderate or severe. He has been on oxygen. Inhaled albuterol is being given as needed. Scheduled Du oNeb will be started. 4. Congestive heart failure. This is right-sided, with associated diastolic dysfunction. His right -sided pleural effusion is likely related. Chest x-rays will be followed. 5. Possible pneumonia. He does have right-sided atelectasis or consolidation associated with his la rge right-sided pleural effusion. This may just be compressive atelectasis. However, pneumonia is p ossible. Current antibiotics are appropriate. Bronchodilator therapies will be continued. 6. History of intravenous drug abuse. It is unclear to me whether he has been using recently. He h as no veins that we can find, so I wonder about skin popping. As his mental status improves, he can be questioned more about this. 7. Thrombocytopenia. Follow. 8. Elevated INR on admission. Likely secondary to nutritional deficiencies and possibly to chronic hepatitis. Vitamin K can be given. 9. Deep venous thrombosis prophylaxis, on subcutaneous heparin. 10. Gastrointestinal prophylaxis: Pepcid will be started. PLAN/RECOMMENDATIONS: Please see the comments under the individual problems as outlined above. He w ill be kept in the intensive care unit. Intravenous fluids will be given, but judiciously secondary to his congestive heart failure. Chest x-ray and laboratory will be followed. Antibiotics will be c ontinued. Appropriate pain management will be given. DuoNeb and Pepcid will be started. Further plans and recommendations will be made based on his progress over the next 12-24 hours. /[id number]/MODL
[2018-05-27] MEDS ORDERED: FAMOTIDINE 20 MG TAB PO SCH (21:00)
[2018-05-27] MEDS: IPRATROPIUM/ALBUTEROL 3 ML DEYVIAL IH SCH (21:06)
[2018-05-27] MEDS: PHYTONADIONE 2.5 MG/2.5 ML ORAL UDL PO SCH (21:52)
[2018-05-27] MEDS: HEPARIN 5,000 UNIT/0.5 ML INJ SC SCH (21:59)
[2018-05-27] MEDS ORDERED: NS 500 ML IV ONE (23:14)
[2018-05-28] MEDS: PIPERACILLIN/TAZO 3.375 GM/DEX 50 ML IV SCH ×2 (00:11→06:09)
[2018-05-28] MEDS ORDERED: ADENOSINE 6 MG/2 ML VIAL IVP ONE ×2 (00:30→00:44)
[2018-05-28] MEDS ORDERED: ADENOSINE 6 MG/2 ML VIAL ONE (00:45)
[2018-05-28] MEDS ORDERED: AMIODARONE HCL 200 ML IV ONE (00:48)
[2018-05-28] MEDS ORDERED: AMIODARONE HCL 100 ML IV ONE (00:48)
[2018-05-28] MEDS ORDERED: NS 500 ML IV ONE (00:56)
[2018-05-28] MEDS: IPRATROPIUM/ALBUTEROL 3 ML DEYVIAL IH SCH ×5 (05:37→20:34)
[2018-05-28] MEDS ORDERED: AMIODARONE HCL 540 MG in D5W 300 ML IV ONE (05:45)
--- NOTE | 2018-05-28 05:49 | HOSPPROG ---
Hospitalist Progress Note Assessment/Plan: XC: Patient developed persistent, regular SVT overnight with rates >160. This was resistant to 2 adenosine administrations and 1 L fluid bolus. I started amiodarone as a result noting low/normal BPs and recent need for vasopressors. After a few hours of amiodarone his rate began to slow down and his rhythm changed to AF. Eventually he converted to SR and continues to be in normal sinus rhythm. Objective: Vital Signs Temp Pulse Resp BP Pulse Ox 37.2 C 70 16 105/67 93 05/27/18 22:00 05/28/18 05:40 05/28/18 05:40 05/28/18 01:00 05/28/18 05:40 05/26/18 05/27/18 05/28/18 05:59 05:59 05:59 Intake Total 3735 1817 Output Total 1000 Balance 3735 817 PT 29.8 SEC (12.0-15.0) H 05/27/18 11:00 INR 2.85 (0.83-1.16) H 05/27/18 11:00 ICD10 Worksheet Patient Problems: Problems Problem Status Onset Closed fracture of clavicle Active Abscess of arm, right Acute Sepsis Acute Elevated troponin Acute CHF (congestive heart failure) Acute
[2018-05-28 05:54] LABS: PLATELET COUNT 88 10^3/uL (150-400)
[2018-05-28 06:02] LABS: INR 2.37 (0.83-1.16); PROTIME(PATIENT) 25.9 SEC (12.0-15.0)
[2018-05-28] MEDS: HEPARIN 5,000 UNIT/0.5 ML INJ SC SCH (06:09)
--- NOTE | 2018-05-28 06:32 | CPEKG ---
Test Reason : OPEN Blood Pressure : / mmHG Vent. Rate : 169 BPM Atrial Rate : 135 BPM P-R Int : 088 ms QRS Dur : 088 ms QT Int : 314 ms P-R-T Axes : 000 107 -47 degrees QTc Int : 527 ms Supraventricular tachycardia Right axis deviation Low voltage, extremity leads Borderline T abnormalities, inferior leads Confirmed by Linsday Thornton ([id number]) on 05/28/2018 6:31:52 AM Referred By: Confirmed By:Lindsay Thornton
--- NOTE | 2018-05-28 07:03 | GCON ---
IN-PATIENT INFECTIOUS DISEASE CONSULTATION REFERRING PHYSICIAN: Samuel Dao MD REASON FOR REFERRAL: Possible sepsis. HISTORY OF PRESENT ILLNESS: The patient is a 67-year-old male with a significant past medical histor y that includes intravenous drug abuse for over 30 years. The patient had confessed to prior ongoing issues with skin rash and abscesses. He presented with complaints of significant ongoing weakness f or the past several days, although upon further questioning, may admit that it has gone on for longer than that. He states that in addition to the weakness, he has had pain and swelling in his feet and legs with skin breakdown around his toes. The patient acknowledges having subjective fevers and chi lls as well. He was noted upon admission to be generally covered with dirt and his extremities and e xposed face were quite covered in dirt. The patient was admitted and begun empirically on IV vancomy nannette and Zosyn. Initial evaluation from the laboratory standpoint revealed a mild leukocytosis as wel l as a low platelet count. His serum chemistry showed hyperkalemia as well as a mild acute renal samm lure with a creatinine of 2.0. His labs were also significant for significantly increased transamina ses with AST much greater than ALT. His total bilirubin was also elevated with a predominance of con jugated subtype. No contrasted imaging was performed above initial evaluation secondary to the acute renal issue. Noncontrast chest CT showed a moderately large right pleural effusion with associated right lower lobe consolidation. Currently, the patient is resting fairly comfortably in the intensiv e care unit. PAST MEDICAL HISTORY: 1. COPD. 2. Opioid dependence. PAST SURGICAL HISTORY: None noted. ANTIBIOTICS: 1. Vancomycin. 2. Zosyn. ALLERGIES: Patient has no known drug allergies. SOCIAL HISTORY: Patient with significant history of IV drug use. He is a current continual everyday smoker with occasional alcohol use as well. The patient is not homeless. FAMILY HISTORY: Reviewed but noncontributory. REVIEW OF SYSTEMS: Other than that detailed above in the history of present illness, a comprehensive 10-system review is negative. PHYSICAL EXAMINATION: VITAL SIGNS: Temperature maximum is 37.2, temperature current is 37.2, heart rate is 167, respiratory rate is 11, blood pressure is 89/66. GENERAL: The patient is a well-formed , very thin older male in no acute distress. HEENT: Normocephalic for age. Atraumatic. No scleral icterus. No drainage from the nares. Eyes and lids: Conjunctivae within normal limits. Pupils ar e equal and round bilaterally. NECK: Supple. No meningismus. LUNGS: Clear to auscultation bilate rally good effort. HEART: Quite tachycardic and irregular. SKIN: Warm and dry to the touch. Occa sional small macular lesions and scabs seen more predominant on the lower extremities than upper. No other surrounding significant erythema noted. MUSCULOSKELETAL: No muscle belly tenderness is noted . No joint line effusion or arthritis is seen. NEURO: Unable to evaluate presently. LABORATORY DATA: Patient has a CBC dated 05/26/2018 shows a white blood cell count of 12.3, hemoglob in of 13.3, hematocrit of 41.9, and a platelet count of 139. Differential is left-shifted with 89% s egmented neutrophils. Serum chemistries on 05/26/2018 show sodium 134, potassium is 6.4, chloride of 95, bicarbonate of 24, BUN of 59, creatinine of 2.0. AST is elevated at 1290, ALT is 566. C-reacti ve protein is elevated at 76.5. Urinalysis shows 3-5 white cells per high-power field. Hepatitis pa santi shows reactivity for the hepatitis C antibody. MICROBIOLOGIC DATA: Patient has blood cultures dated 05/26/2018 which are no growth to date. RADIOLOGIC DATA: Patient has a noncontrasted chest CT which shows a moderately large right pleural e ffusion with associated right lower lobe consolidation and possible compressive atelectatic changes. ASSESSMENT: Chronically ill-appearing patient with acute presentation of weakness over days to maybe a couple of weeks. I am concerned about an underlying undiagnosed chronic illness in this patient. His significant liver enzyme elevations make me concerned for hepatic involvement. At this point co vering with vancomycin and Zosyn empirically is reasonable. There is a possible right lower lobe pne umonia with associated pleural effusion, although difficult to delineate how much is airspace disease versus compressive atelectasis. Sampling of the right-sided thoracic fluid may be reasonable. It w ould also be helpful to have a contrasted study of his abdomen and pelvis, which might be able to be done in the next couple of days after volume resuscitation and improvement of the renal function. At this point would continue volume resuscitation and empiric antibiotics and follow his condition clos maria isabel going forward. PLAN: 1. Continue vancomycin and Zosyn at present dose. 2. Follow up on vancomycin trough prior to 4th dose. 3. Follow laboratory data. 4. Try to obtain abdominal and pelvic CT scan with contrast once creatinine falls below 1.5. /[id number]/MODL
[2018-05-28] MEDS: FAMOTIDINE 20 MG TAB PO SCH (09:05)
--- NOTE | 2018-05-28 09:44 | PCMIDPN ---
Assessment/Plan: # Sepsis like syndrome but may have been more due to hypovolumic shock from poor PO intake, could consider RLL PNA/aspiration pneumonia. No clear source of infection with excoriations B feet without associated cellulitis. H/o skin popping but upper extremities are also without sign of infection, blood cultures remain negative --dc zosyn and vancomycin --ceftriaxone for CAP # Suspect cirrhosis : Elevated LFTs, prolonged INR, low platelets. Multifactorial, underlying HCV + hypovolemic shock --undergoing CT scan to understand better # R pleural effusion w associated atelectasis/infiltrate + Hypoxia: Possible CAP versus aspiration pneumonia. Will provide short course of antibiotics, planned 5-7 days. Patient was narrowed to ceftriaxone today, antibiotic day 2 # ARF: much improved meds vancomycin #2 Zosyn #2 Subjective: Pt states that he is feeling okay and better compared to when he first arrived. When asked, notes that he was feeling poorly for about 1-2 weeks. Denies that his toes are site of prior injection use. Admits to smoking both heroin and cigarettes. Scribe attestation: I, Heike Cevallos, am scribing for, and in the presence of, Lynda Agudelo MD. ILynda MD, personally performed the services described in this documentation, as scribed by Heike Cevallos in my presence, and it is both accurate and complete. Objective: Microbiology: 05/26 Blood cx 2/2 sets, NGTD. Vital Signs Temp Pulse Resp BP Pulse Ox 36.3 C 67 11 L 109/64 100 05/28/18 05:55 05/28/18 05:55 05/28/18 05:55 05/28/18 05:55 05/28/18 05:55 Laboratory Results 05/28/18 05:35 05/28/18 05:35 05/27/18 05/28/18 05/29/18 05:59 05:59 05:59 Intake Total 3735 5117 Output Total 1950 Balance 3735 3167 ESR 22 MM/HR (0-20) H 05/26/18 19:10 C-Reactive Protein 76.5 mg/L (<10.0) H 05/26/18 19:10 - Physical Exam General Appearance: alert, thin, non-toxic EENT: pale conjunctiva, dry mucous membranes, other (No suffocations or petechial abnormalities of eyes ), No scleral icterus, No thrush Respiratory: lungs clear (Except for some decreased breath sounds in the bases right greater than left), No accessory muscle use Neck: supple Cardiac/Chest: regular rate, rhythm, other (Right subclavian triple lumen catheter. ) Extremities: non-tender, other (Multiple necrotic superficial excoriations over bilaterally upper extremities secondary to injection heroin use. Multiple necrotic superficial excoriations over anterior toes bilaterally with mild surround erythema. L-anterior campbell with mild erythema.), No inflammation Peripheral Pulses: 2+: dorsalis-pedis (R), dorsalis-pedis (L) Abdomen: non-tender, soft, ascites (Possible ascites) Skin: pallor, signs of IVDA, No jaundice, No rash, No embolic lesions Neuro/Psych: alert, normal mood/affect, oriented x 3 - Line/s other Lines: other (Right triple-lumen subclavian), No drainage, No erythema - Time Spent With Patient Time Spent with Patient: greater than 35 minutes Time Spent with Patient: Greater than 35 minutes spent on this patients care, greater than 50% of time spent counseling, educating, and coordinating care regarding the above mentioned plan. ICD10 Worksheet Patient Problems: Problems Problem Status Onset CHF (congestive heart failure) Acute Elevated troponin Acute Sepsis Acute Closed fracture of clavicle Active Abscess of arm, right Acute
[2018-05-28] MEDS: PHYTONADIONE 2.5 MG/2.5 ML ORAL UDL PO SCH (09:53)
[2018-05-28] MEDS ORDERED: PNEUMOC 13-VAL CONJ-DIP CRM/PF 0.5 ML SYR (PREVNAR 13) IM ONE (11:21)
[2018-05-28] MEDS ORDERED: IOPAMIDOL (ISOVUE-300) 100 ML BTL ONE (12:48)
--- NOTE | 2018-05-28 15:06 | HOSPPROG ---
Hospitalist Progress Note Assessment/Plan: Subjective Follow-up on septic shock and tachycardia. Overnight patient became tachycardic again with rates in the 160s. He did receive 2 doses of adenosine without affect in slowing of heart rate. He was then given amiodarone and started on amiodarone drip. This did control his rate and converted him to sinus rhythm. He was initially felt to have SVT and then after receiving amiodarone it appeared more consistent with atrial fibrillation. In the morning we tried stopping the amiodarone but after 15 min he went into AFib with RVR once again. The drip was then resumed. Otherwise today he is more interactive than yesterday. Objective Vitals as detailed below Exam General-patient is fatigued appearing but arousable, very unkempt Heart-normal sinus rhythm at the time of my exam without murmurs. Lungs-normal respiratory effort, mild coarseness bilaterally, no significant wheezing Abdomen-soft nontender nondistended -Miles catheter placed with dark yellow urine Skin-mild erythema on both lower extremities open skin on dorsal aspect of his toes bilaterally, he was examined without his bandages in place. His skin exam took place yesterday when his bandages were off. Labs as detailed below Assessment and plan Severe sepsis with shock-shock resolved. Improving parameters. Case reviewed with Infectious Disease today and patient will continue with Zosyn and vancomycin will be stopped. Suspect cellulitis as the source. Acute hypoxic respiratory failure-patient does have chronic hypoxic respiratory failure secondary to COPD on a baseline oxygen need of 2.5 L. Continue with scheduled nebulizers and oxygen which has reduced today to 5 L from 10 L yesterday. Pneumonia-possible but lower clinical suspicion for. Suspecting right-sided pleural effusion with compressive atelectasis. Cellulitis-patient has open skin lesions on dorsal aspect of bilateral foot and toes. Monitor erythema with current antibiotic therapy. Continue topical wound care. Acute kidney injury-resolved. secondary to sepsis and hypovolemia. Creatinine is back in the normal range today. Considering developing edema I will stop IV fluids at this point time but they may need to be resumed if he becomes hypotensive. Transaminitis-I suspect patient likely has a baseline elevation of his liver enzymes secondary to chronic hepatitis-C but with an acute rise secondary to sepsis. They are trending downward. An abdominal CT was performed today to further evaluate his liver and abdomen considering significant overall decline over the prior weeks. Atrial fibrillation with rapid ventricular response-I suspect this is a new diagnosis but will need to clarify once he becomes more mentally clear. An echocardiogram has been completed. TSH ordered as well. Rate currently controlled with amiodarone. Consider aspirin. I think full anticoagulation will be a challenge with this patient considering his poor overall function. Tobacco use-nicotine patch if desired. DVT prophylaxis-heparin. Disposition-case discussed in rounds today. We will need to look in the patient 's current home situation and determine if this is adequate for him at discharge. Objective: Vital Signs Temp Pulse Resp BP Pulse Ox 36.4 C 73 20 107/72 94 05/28/18 14:00 05/28/18 14:00 05/28/18 14:00 05/28/18 14:00 05/28/18 14:00 Laboratory Results 05/28/18 05:35 05/28/18 05:35 05/27/18 05/28/18 05/29/18 05:59 05:59 05:59 Intake Total 3735 5117 Output Total 1950 Balance 3735 3167 PT 25.9 SEC (12.0-15.0) H 05/28/18 05:35 INR 2.37 (0.83-1.16) H 05/28/18 05:35 ICD10 Worksheet Patient Problems: Problems Problem Status Onset CHF (congestive heart failure) Acute Elevated troponin Acute Sepsis Acute Closed fracture of clavicle Active Abscess of arm, right Acute
[2018-05-28] MEDS ORDERED: PNEUMOCOCCAL 0.5ML VACCINE VIAL (PNEUMOVAX 23) ONE (15:09)
--- NOTE | 2018-05-28 15:32 | PDINTPN ---
Able Seaman Progress Note Assessment/Plan: Assessment: 67 year old long-time IV drug abuser admitted with dehydration, cellulitis, ulcerations, sepsis, and failure to thrive. Cellulitis: Status post debridement of his feet. Improving. Has skin lesions , many related to skin popping. Pleural effusions, atelectasis. Pneumonia possible but doubt clinically. Covered by present antibiotics. On bronchodilators. COPD, ongoing tobacco abuse. Hepatitis-C, elevated liver function studies. Elevated INR. Volume depletion with acute renal failure. Resolving with intravenous fluids. SVT: Converted with amiodarone. Normal LV, dilated RV. History IV drug abuse: Heroin. On p.r.n. Narcotics if needed. Prophylaxis: On Pepcid, INR elevated. Plan: Continue IV fluids. Continue amiodarone, switch to p.o.. Add low-dose metoprolol. Follow laboratory. Continue antibiotics. Follow chest x-ray intermittently. Low-dose narcotics p.r.n.. Discuss possibly putting him on a maintenance dose going forward. PT/OT. Work on disposition: Will need SNF 35 min of critical care time spent directly with the patient regarding medical and cardiologic management, ID issues, disposition, and volume status. Discuss with Infectious Disease, hospitalist, nursing, web content & social media manager the ICU multi disciplinary team. Subjective: More alert today, conversant. Since he is doing okay. Pain in the feet significantly improved. Denies shortness of breath. Objective: Vital Signs Temp Pulse Resp BP Pulse Ox 36.4 C 73 20 107/72 94 05/28/18 14:00 05/28/18 14:00 05/28/18 14:00 05/28/18 14:00 05/28/18 14:00 Laboratory Results 05/28/18 05:35 05/28/18 05:35 05/27/18 05/28/18 05/29/18 05:59 05:59 05:59 Intake Total 3739 511 Output Total 4753 Balance 3735 3167 PT 25.9 SEC (12.0-15.0) H 05/28/18 05:35 INR 2.37 (0.83-1.16) H 05/28/18 05:35 CXR: Large heart. Increased right basilar infiltrate/atelectasis. CT scan of the abdomen: Final reading pending. There are pleural effusions present, right greater than left, associated with some basilar atelectasis Physical Exam - Physical Exam General Appearance: alert, no apparent distress, thin EENT: PERRL/EOMI, other (Nasal cannula in place at 4 L. Poor dentition), No ET tube Neck: normal inspection (No JVD) Respiratory: decreased breath sounds (Bilaterally), rales (Scattered rales at bases), rhonchi (Present with cough) Cardiac/Chest: tachycardia (SVT present earlier. Converted. In NSR again now) , systolic murmur Abdomen: normal bowel sounds, non-tender, No soft (Somewhat firm) Male Genitalia: other (Miles catheter in place, good urine output.) Skin: warm/dry, pallor Extremities: other (Feet dressed bilaterally.) Neuro/Psych: no motor/sensory deficits (Moves all extremities equally), No cognition abnormalities (Cognition appears intact) ICD10 Worksheet Patient Problems: Problems Problem Status Onset Closed fracture of clavicle Active Abscess of arm, right Acute Sepsis Acute Elevated troponin Acute CHF (congestive heart failure) Acute
[2018-05-28] MEDS: METOPROLOL TARTRATE 25 MG TAB PO SCH (20:58)
[2018-05-29] MEDS: IPRATROPIUM/ALBUTEROL 3 ML DEYVIAL IH SCH ×4 (05:43→21:08)
[2018-05-29] MEDS: MUPIROCIN 2% 22 GM OINT TP PRN ×2 (06:09→09:30)
[2018-05-29 06:21] LABS: PLATELET COUNT 67 10^3/uL (150-400)
[2018-05-29] MEDS: FAMOTIDINE 20 MG TAB PO SCH (08:49)
[2018-05-29] MEDS: METOPROLOL TARTRATE 25 MG TAB PO SCH ×2 (08:49→21:33)
[2018-05-29] MEDS: PHYTONADIONE 2.5 MG/2.5 ML ORAL UDL PO SCH (08:56)
[2018-05-29] MEDS ORDERED: PROTOCOL K PHOSPHATE 1 DOSE IV PRN (10:30)
[2018-05-29] MEDS ORDERED: PROTOCOL MAGNESIUM 1 DOSE IV PRN (10:30)
[2018-05-29] MEDS ORDERED: PROTOCOL CALCIUM 1 DOSE IV PRN (10:30)
[2018-05-29] MEDS ORDERED: PROTOCOL POTASSIUM 1 DOSE MISC PRN (10:30)
[2018-05-29] MEDS ORDERED: POTASSIUM CL 10 MEQ TAB PO ONE ×2 (11:11→22:27)
[2018-05-29] MEDS ORDERED: MAGNESIUM SULF 2 GM/WATER 50 ML IV ONE (11:27)
[2018-05-29] MEDS: HEPARIN 5,000 UNIT/0.5 ML INJ SC SCH ×2 (14:26→21:34)
--- NOTE | 2018-05-29 14:47 | ASMTCMCOM ---
CM Note CM Note Notes: Spoke with Elizabeth from [facility] and they have accepted the patient for rehab. Elizabeth met with the patient today and he is in agreement to go to [facility] when he is ready for discharge. Wound care note faxed to Elizabeth. Patient will most likely be ready for discharge around Sunday of this week. CM will follow. Date Signed: 05/29/2018 02:46 PM Electronically Signed By:Oanh Beaver LCSW
--- NOTE | 2018-05-29 14:58 | PDINTPN ---
Ward Supervisor Progress Note Assessment/Plan: Assessment: 67 year old long-time IV drug abuser admitted with dehydration, cellulitis, ulcerations, sepsis, and failure to thrive. Cellulitis: Status post debridement of his feet. Improving. Has skin lesions , many related to skin popping. Pleural effusions, atelectasis. Pneumonia possible but doubt clinically. Covered by present antibiotics. On bronchodilators. COPD, ongoing tobacco abuse. Hepatitis-C, elevated liver function studies. Elevated INR. Volume depletion with acute renal failure. Resolved with intravenous fluids. SVT: Converted with amiodarone. Normal LV, dilated RV. History IV drug abuse: Heroin. On p.r.n. Narcotics if needed. Prophylaxis: On Pepcid, INR elevated. Plan: Continue IV fluids. Continue amiodarone, switch to p.o.. Cont low-dose metoprolol. Follow laboratory. Continue antibiotics. Follow chest x-ray intermittently. Low-dose narcotics p.r.n.. Discuss possibly putting him on a maintenance dose going forward. PT/OT. Work on disposition: Will need SNF 40 min of critical care time spent directly with the patient regarding medical and cardiologic management, ID issues, disposition, and volume status. Discuss with Infectious Disease, hospitalist, nursing, executive secretary social welfare the ICU multi disciplinary team. Subjective: Doing well today. Feet feel better. Denies shortness of breath. Brighter. Objective: Vital Signs Temp Pulse Resp BP Pulse Ox 36.5 C 56 L 15 99/68 L 97 05/29/18 12:00 05/29/18 14:00 05/29/18 14:00 05/29/18 14:00 05/29/18 14:00 Laboratory Results 05/29/18 06:10 05/29/18 06:10 05/28/18 05/29/18 05/30/18 05:59 05:59 05:59 Intake Total 5117 420 440 Output Total 1950 1100 445 Balance 3167 -680 -5 PT 25.9 SEC (12.0-15.0) H 05/28/18 05:35 INR 2.37 (0.83-1.16) H 05/28/18 05:35 Laboratory Tests 05/28/18 05/29/18 05/29/18 05:35 06:10 11:15 Calcium 7.3 L 7.2 L Ionized Calcium 1.13 Phosphorus 4.0 Magnesium 1.4 L Total Bilirubin 1.7 H AST 717 H ALT 467 H Albumin 2.2 L TSH 4.640 Physical Exam - Physical Exam General Appearance: alert, no apparent distress, thin EENT: PERRL/EOMI, other (OxyMask in place) Neck: normal inspection Respiratory: decreased breath sounds (Bilaterally), rhonchi (Rhonchi present with cough), wheezing (Few wheezes present.), prolonged expiration, No lungs clear, No normal breath sounds, No respiratory distress Cardiac/Chest: bradycardia (Sinus) Abdomen: normal bowel sounds, non-tender, soft Male Genitalia: other (Miles catheter in place, good urine output) Skin: normal color, warm/dry, other (Multiple skin lesions secondary to skin popping in abrasions. Toes and feet look significantly better, ulcerations/ excoriations drying up.) Extremities: No pedal edema Neuro/Psych: no motor/sensory deficits (Moves all extremities equally), cognition abnormalities (Improving, brighter, oriented.) ICD10 Worksheet Patient Problems: Problems Problem Status Onset Closed fracture of clavicle Active Abscess of arm, right Acute Sepsis Acute Elevated troponin Acute CHF (congestive heart failure) Acute
--- NOTE | 2018-05-29 16:06 | HOSPPROG ---
Hospitalist Progress Note Assessment/Plan: #Septic shock: due to cellulitis. #Lower leg cellulitis: wound care #Possible RLL PNA: narrowed to CTX; Day 3/ #Acute hypoxic resp failure: suspect atelectasis, PNA #COLLEEN: resolved #Transaminitis: due to hypotension #Cirrhosis: ascites on CT, coagulopathy #HCV: #A fib with RVR: TSH NL. Now in NSR #Tobacco abuse: conchita patch #Hypokalemia/hypomagnesium: replete #Acute encephalopathy: wax/waning. Oriented today #Deconditioning: PT/OT #DVT ppx: SQH Disp: inpatient admission for IV abx, PT/OT. Case d/w Dr. Molina Subjective: "feel weak all over" Objective: Vital Signs Temp Pulse Resp BP Pulse Ox 36.5 C 56 L 15 99/68 L 97 05/29/18 12:00 05/29/18 14:00 05/29/18 14:00 05/29/18 14:00 05/29/18 14:00 Laboratory Results 05/29/18 06:10 05/29/18 06:10 05/28/18 05/29/18 05/30/18 05:59 05:59 05:59 Intake Total 5117 420 440 Output Total 1950 1100 445 Balance 3167 -680 -5 PT 25.9 SEC (12.0-15.0) H 05/28/18 05:35 INR 2.37 (0.83-1.16) H 05/28/18 05:35 - Time Spent With Patient Time Spent with Patient: greater than 35 minutes Time Spent with Patient: Greater than 35 minutes spent on this patients care, greater than 50% of time spent counseling, educating, and coordinating care regarding the above mentioned plan. - Physical Exam Constitutional: chronically ill appearing, cachectic Eyes: PERRL Ears, Nose, Mouth, Throat: moist mucous membranes Cardiovascular: regular rate and rhythym ICD10 Worksheet Patient Problems: Problems Problem Status Onset CHF (congestive heart failure) Acute Elevated troponin Acute Sepsis Acute Closed fracture of clavicle Active Abscess of arm, right Acute
[2018-05-29] MEDS: HYDROCODONE/APAP 5/325 TAB PO SCH ×2 (16:30→21:33)
--- NOTE | 2018-05-29 18:27 | PCMIDPN ---
Assessment/Plan: Assessment/Plan: * Sepsis syndrome: Source considerations include pneumonia versus skin and soft tissue. Clinically improved without ongoing signs of sepsis. Continue ceftriaxone which will provide activity against both pneumonia and skin and soft tissue infection with anticipated 5 days total of antibiotic therapy (day # 3/5). * Cirrhosis with underlying hepatitis-C 05/29/18 18:23 Subjective: Patient without specific complaints. Notes that he feels better. Objective: Vital Signs Temp Pulse Resp BP Pulse Ox 36.3 C 64 22 H 94/67 L 98 05/29/18 16:00 05/29/18 17:26 05/29/18 17:26 05/29/18 16:00 05/29/18 16:00 Laboratory Results 05/29/18 06:10 05/29/18 06:10 05/28/18 05/29/18 05/30/18 05:59 05:59 05:59 Intake Total 5117 420 440 Output Total 1950 1100 445 Balance 3167 -680 -5 ESR 22 MM/HR (0-20) H 05/26/18 19:10 C-Reactive Protein 76.5 mg/L (<10.0) H 05/26/18 19:10 Ceftriaxone # 2 (antibiotics # 3), blood cultures x2 no growth - Physical Exam General Appearance: alert, no apparent distress, non-toxic EENT: poor dentition, No scleral icterus Respiratory: wheezing (Bilaterally with cough) Cardiac/Chest: regular rate, rhythm Extremities: inflammation (Erythema over left anterior campbell and dorsal aspect of foot; erythema over right dorsum of foot adjacent to toes with appearance suggesting hyperemia) Abdomen: non-tender, No distended Skin: No embolic lesions ICD10 Worksheet Patient Problems: Problems Problem Status Onset CHF (congestive heart failure) Acute Elevated troponin Acute Sepsis Acute Closed fracture of clavicle Active Abscess of arm, right Acute
[2018-05-29] MEDS: POTASSIUM Cl (KCl) 50 ML IV SCH ×2 (21:36→23:53)
[2018-05-29] MEDS: LORazepam 0.5 MG TAB PO PRN (23:59)
[2018-05-30 04:41] LABS: PLATELET COUNT 52 10^3/uL (150-400)
[2018-05-30] MEDS: IPRATROPIUM/ALBUTEROL 3 ML DEYVIAL IH SCH ×4 (05:17→21:54)
[2018-05-30] MEDS: HEPARIN 5,000 UNIT/0.5 ML INJ SC SCH (06:00)
[2018-05-30] MEDS ORDERED: MAGNESIUM HYDROXIDE 30 ML UDCUP PO PRN (06:06)
[2018-05-30] MEDS ORDERED: POLYETHYLENE GLYCOL 3350 17 GM PKT PO PRN (06:06)
[2018-05-30] MEDS ORDERED: BISACODYL 10 MG SUPP PR PRN (06:06)
[2018-05-30] MEDS ORDERED: LACTULOSE 20 GM/30 ML UDCUP PO PRN (06:06)
[2018-05-30] MEDS: HYDROCODONE/APAP 5/325 TAB PO SCH ×2 (10:41→13:38)
--- NOTE | 2018-05-30 11:07 | HOSPPROG ---
Hospitalist Progress Note Assessment/Plan: #Septic shock: due to cellulitis vs PNA. Ceftriaxone, Day 4/5 #Decompensated cirrhosis: with anasarca, ascites on CT. Trial diuresis, IV albumin #Lower leg cellulitis: wound care #Acute hypoxic resp failure: suspect atelectasis, PNA #COLLEEN: resolved #Transaminitis: due to hypotension #HCV: stable #A fib with RVR: TSH NL. Now in NSR. Hold BB with soft pressures #Tobacco abuse: conchita patch #Hypokalemia/hypomagnesium: replete #Acute encephalopathy: wax/waning. Avoid centrally-acting medications #Moderate protein-caloric malnutrition: dietary consult. IV albumin #h/o IVDU: no signs of w/d #Deconditioning: PT/OT #DVT ppx: SQH Disp: inpatient admission for IV abx, PT/OT. Subjective: not participating in exam; just dosed Ativan and somnolent Objective: Vital Signs Temp Pulse Resp BP Pulse Ox 36.5 C 65 16 92/62 L 95 05/30/18 07:05 05/30/18 07:05 05/30/18 07:05 05/30/18 07:05 05/30/18 07:05 Laboratory Results 05/30/18 04:30 05/30/18 04:30 05/29/18 05/30/18 05/31/18 05:59 05:59 05:59 Intake Total 420 1170 Output Total 1100 645 Balance -680 525 PT 25.9 SEC (12.0-15.0) H 05/28/18 05:35 INR 2.37 (0.83-1.16) H 05/28/18 05:35 - Time Spent With Patient Time Spent with Patient: greater than 35 minutes Time Spent with Patient: Greater than 35 minutes spent on this patients care, greater than 50% of time spent counseling, educating, and coordinating care regarding the above mentioned plan. - Physical Exam Constitutional: unkempt, cachectic Eyes: PERRL Cardiovascular: regular rate and rhythym, edema (+2-3 sacral edema, +2 legs edema, significant scrotal edema) Gastrointestinal: ascites (firm) ICD10 Worksheet Patient Problems: Problems Problem Status Onset CHF (congestive heart failure) Acute Elevated troponin Acute Sepsis Acute Closed fracture of clavicle Active Abscess of arm, right Acute
[2018-05-30] MEDS: FAMOTIDINE 20 MG TAB PO SCH (11:35)
[2018-05-30] MEDS: METOPROLOL TARTRATE 25 MG TAB PO SCH (11:36)
[2018-05-30] MEDS: SENNOSIDES/DOCUSATE SODIUM TAB PO SCH ×2 (11:39→22:54)
[2018-05-30] MEDS ORDERED: ALBUMIN 25% 100 ML IV ONE (11:59)
[2018-05-30] MEDS ORDERED: HYDROCODONE/APAP 5/325 TAB PO PRN (12:37)
[2018-05-30] MEDS: FUROSEMIDE 20 MG/2 ML VIAL IVP SCH (13:33)
[2018-05-30] MEDS ORDERED: MAGNESIUM SULF 1 GM/DEXTROSE 100 ML IV ONE (14:33)
--- NOTE | 2018-05-30 14:39 | PCMIDPN ---
Assessment/Plan: Assessment/Plan: * Sepsis syndrome: Findings of sepsis resolved. Source considerations include pneumonia versus skin and soft tissue infection. Continued clinical improvement with blood cultures remaining negative. Will complete 5 days of antibiotic therapy (day # 4/5) to provide coverage against both possibility of pneumonia or soft tissue infection. * Cirrhosis with underlying hepatitis-C Will sign off. Please call with questions or recurrent symptoms. 05/30/18 14:36 Subjective: Patient is sleeping. Notes no complaints and that feeling better. Objective: Vital Signs Temp Pulse Resp BP Pulse Ox 36.4 C 66 14 108/72 93 05/30/18 10:43 05/30/18 10:43 05/30/18 10:43 05/30/18 10:43 05/30/18 10:43 Laboratory Results 05/30/18 04:30 05/30/18 04:30 05/29/18 05/30/18 05/31/18 05:59 05:59 05:59 Intake Total 420 1170 Output Total 1100 645 Balance -680 525 ESR 22 MM/HR (0-20) H 05/26/18 19:10 C-Reactive Protein 76.5 mg/L (<10.0) H 05/26/18 19:10 Ceftriaxone # 3 (antibiotics # 4) Blood cultures x2 no growth - Physical Exam General Appearance: no apparent distress, non-toxic EENT: poor dentition, No scleral icterus Respiratory: wheezing (Bilaterally) Cardiac/Chest: regular rate, rhythm Extremities: inflammation (Mild residual erythema over left anterior campbell) Abdomen: non-tender, No distended ICD10 Worksheet Patient Problems: Problems Problem Status Onset CHF (congestive heart failure) Acute Elevated troponin Acute Sepsis Acute Closed fracture of clavicle Active Abscess of arm, right Acute
--- NOTE | 2018-05-30 15:57 | WOCRNPDOC ---
ANGIE Advanced Assessment Note - Skin Integrity Problem, Advanced Assess Right Lower Arm Dressing Type: Allevyn Life Skin Integrity Problem Comment: Multiple scabs and skin tears present. Cleaned with ns and gauze. Wound gel to open skin tears/scabs. Recovered with Allevyn life. Atractain cream applied to bilateral hands/arms/legs/feet. Amy Riley in room for care. Wound care will sign off.
[2018-05-30] MEDS ORDERED: POTASSIUM CL 10 MEQ TAB PO ONE (22:30)
[2018-05-31] MEDS: LORazepam 0.5 MG TAB PO PRN (01:09)
[2018-05-31] MEDS: IPRATROPIUM/ALBUTEROL 3 ML DEYVIAL IH SCH ×4 (05:49→21:01)
[2018-05-31] MEDS ORDERED: MAGNESIUM SULF 1 GM/DEXTROSE 100 ML IV ONE (11:36)
[2018-05-31] MEDS ORDERED: POTASSIUM CL 10 MEQ TAB PO ONE ×2 (11:36→17:00)
--- NOTE | 2018-05-31 11:44 | HOSPPROG ---
Hospitalist Progress Note Assessment/Plan: #Septic shock: due to cellulitis vs PNA. Completed 5 days CTX #Decompensated cirrhosis: with anasarca, ascites on CT. Trial diuresis, IV albumin #Lower leg cellulitis: wound care #Acute hypoxic resp failure: suspect atelectasis, PNA #Thrombocytopenia: due to cirrhosis #COLLEEN: resolved #Transaminitis: due to hypotension #HCV: stable #A fib with RVR: TSH NL. Now in NSR. Hold BB with soft pressures #Tobacco abuse: conchita patch #Hypokalemia/hypomagnesium: replete #Acute encephalopathy: suspect hepatic. Schedule lactulose. Avoid centrally- active meds #Moderate protein-caloric malnutrition: dietary consult. IV albumin #h/o IVDU: no signs of w/d #Deconditioning: PT/OT #Goals: Palliative consulted for goals, advanced directives #DVT ppx: SQH Disp: inpatient admission for IV abx, PT/OT. Goals: spoke to sister Jimena ([facility]) Updated on poor clinical prognosis. She will be unreachable Sunday for 1 week. Brother, Isaiah Sims, is med proxy and can be contact (cell) [phone], (home) [phone]. He does not have medical decisional capacity. Palliative care to call sister Additional time spent on direct care: 30min on phone with sister discussing goals, palliative care/hospice (11:00-11:30) Subjective: pulled subclavian line Objective: Vital Signs Temp Pulse Resp BP Pulse Ox 35.8 C L 77 18 136/76 H 92 05/31/18 07:38 05/31/18 10:52 05/31/18 10:52 05/31/18 07:38 05/31/18 10:52 Laboratory Results 05/31/18 07:50 05/31/18 07:50 05/30/18 05/31/18 06/01/18 05:59 05:59 05:59 Intake Total 1170 250 Output Total 645 1175 Balance 525 -925 PT 25.9 SEC (12.0-15.0) H 05/28/18 05:35 INR 2.37 (0.83-1.16) H 05/28/18 05:35 - Time Spent With Patient Time Spent with Patient: greater than 35 minutes Time Spent with Patient: Greater than 35 minutes spent on this patients care, greater than 50% of time spent counseling, educating, and coordinating care regarding the above mentioned plan. - Physical Exam Constitutional: chronically ill appearing, cachectic Eyes: PERRL Ears, Nose, Mouth, Throat: poor dentition, dry mucous membranes Cardiovascular: regular rate and rhythym, edema (anasarca throughout abd, arms and legs. ) Gastrointestinal: distension Genitourinary: other (significant scrotal edema) Skin: other (ecchymoses left arm. Some serous drainage from arms) Musculoskeletal: generalized weakness Psychiatric: encephalopathic, poor insight, poor judgement, poor memory ICD10 Worksheet Patient Problems: Problems Problem Status Onset CHF (congestive heart failure) Acute Elevated troponin Acute Sepsis Acute Closed fracture of clavicle Active Abscess of arm, right Acute
[2018-05-31] MEDS ORDERED: ALTEPLASE 2 MG VIAL IVP PRN (11:50)
[2018-05-31] MEDS ORDERED: OLANZapine DISINTEGR 5 MG TAB PO PRN (11:51)
[2018-05-31] MEDS: SENNOSIDES/DOCUSATE SODIUM TAB PO SCH ×2 (13:26→20:57)
--- NOTE | 2018-05-31 13:52 | ASMTCMCOM ---
CM Note CM Note Notes: 05/31/2018 Case Management Note Briefly discussed with this morning. Updated [place] on pt. Amie from noted that [facility] is the only palliative agency contracted with . [facility] and [email or web address] in addition to [facility] are available if needed. Will await instructions from or [facility] palliative team members before sending referrals. See MD note from 05/31 for contact info for [facility]. Case Management d/c poc: return to [facility] with palliative or hospice support. Case Management to follow. Date Signed: 05/31/2018 01:52 PM Electronically Signed By:Erica De La Rosa RN
[2018-05-31] MEDS: LACTULOSE 20 GM/30 ML UDCUP PO SCH ×2 (16:09→22:02)
[2018-05-31] MEDS: FUROSEMIDE 20 MG/2 ML VIAL IVP SCH ×3 (16:32→22:03)
[2018-05-31] MEDS: FAMOTIDINE 20 MG TAB PO SCH (16:53)
[2018-05-31] MEDS: HYDROCODONE/APAP 5/325 TAB PO PRN (16:53)
[2018-05-31] MEDS: POTASSIUM Cl (KCl) 50 ML IV SCH (23:27)
[2018-06-01] MEDS: POTASSIUM Cl (KCl) 50 ML IV SCH ×5 (00:58→23:59)
[2018-06-01] MEDS: IPRATROPIUM/ALBUTEROL 3 ML DEYVIAL IH SCH ×5 (05:51→22:03)
[2018-06-01] MEDS: FUROSEMIDE 20 MG/2 ML VIAL IVP SCH (09:11)
[2018-06-01] MEDS: FAMOTIDINE 20 MG TAB PO SCH (09:12)
[2018-06-01] MEDS: LACTULOSE 20 GM/30 ML UDCUP PO SCH ×3 (09:12→21:52)
[2018-06-01] MEDS: SENNOSIDES/DOCUSATE SODIUM TAB PO SCH ×2 (09:12→21:51)
[2018-06-01] MEDS: MUPIROCIN 2% 22 GM OINT TP PRN ×2 (09:44→16:36)
[2018-06-01] MEDS ORDERED: MAGNESIUM SULF 1 GM/DEXTROSE 100 ML IV ONE (11:43)
[2018-06-01] MEDS ORDERED: POTASSIUM CL 10 MEQ TAB PO ONE (11:46)
[2018-06-01] MEDS: ACETAMINOPHEN 325 MG TAB PO PRN (16:19)
[2018-06-01] MEDS: HYDROCODONE/APAP 5/325 TAB PO PRN ×2 (17:37→21:31)
[2018-06-02] MEDS: IPRATROPIUM/ALBUTEROL 3 ML DEYVIAL IH SCH ×4 (06:02→19:21)
[2018-06-02] MEDS ORDERED: POTASSIUM CL 10 MEQ TAB PO ONE ×3 (07:44→19:36)
[2018-06-02] MEDS ORDERED: MAGNESIUM SULF 1 GM/DEXTROSE 100 ML IV ONE (07:45)
[2018-06-02] MEDS: ACETAMINOPHEN 325 MG TAB PO PRN (07:47)
[2018-06-02] MEDS: FAMOTIDINE 20 MG TAB PO SCH (07:47)
[2018-06-02] MEDS: SENNOSIDES/DOCUSATE SODIUM TAB PO SCH ×2 (07:47→20:07)
[2018-06-02] MEDS: LACTULOSE 20 GM/30 ML UDCUP PO SCH ×3 (07:48→20:08)
[2018-06-02] MEDS: MUPIROCIN 2% 22 GM OINT TP PRN ×2 (08:44→15:39)
[2018-06-02] MEDS ORDERED: FUROSEMIDE 20 MG/2 ML VIAL IVP SCH (09:00)
--- NOTE | 2018-06-02 13:40 | ASMTCMCOM ---
CM Note CM Note Notes: 06/02/2018 Case Management Note Discussed with RN. Discharge is possible mid to late week. Faxed [place] updates. Noted Palliative order. See note for information re: palliative consult. Case Management d/c poc: [facility] possibly with Palliative Care. [facility] is only provider at [facility]. Date Signed: 06/02/2018 01:39 PM Electronically Signed By:Erica De La Rosa RN
--- NOTE | 2018-06-02 14:07 | CPEKG ---
Test Reason : OPEN Blood Pressure : / mmHG Vent. Rate : 084 BPM Atrial Rate : 085 BPM P-R Int : 142 ms QRS Dur : 092 ms QT Int : 440 ms P-R-T Axes : 075 105 000 degrees QTc Int : 521 ms Sinus rhythm Atrial premature complex Low voltage with right axis deviation Minimal ST depression, inferior leads Prolonged QT interval Confirmed by Lindsay Thornton ([id number]) on 06/02/2018 2:07:08 PM Referred By: Confirmed By:Lindsay Thornton
--- NOTE | 2018-06-02 14:27 | HOSPPROG ---
Hospitalist Progress Note Assessment/Plan: #Metabolic alkalosis: from diuresis; significant UOP past 24hrs. Repeat BMP in morn #Decompensated cirrhosis: anasarca nearly resolved today. Hold off diuretics until alkalosis improved. #Lower leg cellulitis: wound care #Acute hypoxic resp failure: improving. Suspect atelectasis, PNA #Acute encephalopathy: some improvement today. Multifactorial with acute infection, underlying cirrhosis. No focal neuro deficits. -Ammonia, TSH NL. B12 pending. #Thrombocytopenia: due to cirrhosis #Septic shock: due to cellulitis vs PNA. Completed 5 days CTX #COLLEEN: resolved #Transaminitis: due to hypotension #HCV: stable #A fib with RVR: from critical illness. NSR now. #Tobacco abuse: conchita patch #Hypokalemia/hypomagnesium: on protocol #Moderate protein-caloric malnutrition: dietary consult, meal supplements #h/o IVDU: no signs of w/d #Deconditioning: PT/OT #Goals: Palliative consulted for goals, advanced directives #DVT ppx: SQH Disp: inpatient admission for IV abx, PT/OT. Goals: spoke to sister Jimena (MDPOA) Updated on poor clinical prognosis. Brother, Isaiah Sims, is med proxy and can be contact (cell) [phone], (home ) [phone]. He does not have medical decisional capacity. Palliative care following. Family wants to cont current therapies Subjective: "can breath easier today" Objective: Vital Signs Temp Pulse Resp BP Pulse Ox 36.7 C 77 16 120/63 91 L 06/02/18 11:30 06/02/18 11:30 06/02/18 11:30 06/02/18 11:30 06/02/18 11:30 Laboratory Results 06/02/18 05:30 06/02/18 05:30 06/01/18 06/02/18 06/03/18 05:59 05:59 05:59 Intake Total 700 1300 100 Output Total 1995 9325 1400 Balance -3451 -4704 -1300 PT 25.9 SEC (12.0-15.0) H 05/28/18 05:35 INR 2.37 (0.83-1.16) H 05/28/18 05:35 - Time Spent With Patient Time Spent with Patient: greater than 35 minutes Time Spent with Patient: Greater than 35 minutes spent on this patients care, greater than 50% of time spent counseling, educating, and coordinating care regarding the above mentioned plan. - Physical Exam Constitutional: chronically ill appearing, cachectic Ears, Nose, Mouth, Throat: poor dentition Cardiovascular: regular rate and rhythym, edema (trace-+1 leg edema. UE edema nearly resolved) Respiratory: no respiratory distress Gastrointestinal: normoactive bowel sounds Genitourinary: no bladder fullness, other (scrotal edema minimal today) Musculoskeletal: generalized weakness Neurologic: AAOx3 (alert to hospital, [employer] (improved from yesterday)), CN II- XII Intact, No facial droop Psychiatric: interacting appropriately, poor insight, poor memory ICD10 Worksheet Patient Problems: Problems Problem Status Onset CHF (congestive heart failure) Acute Elevated troponin Acute Sepsis Acute Closed fracture of clavicle Active Abscess of arm, right Acute
[2018-06-02] MEDS: HYDROCODONE/APAP 5/325 TAB PO PRN (21:43)
[2018-06-03] MEDS: IPRATROPIUM/ALBUTEROL 3 ML DEYVIAL IH SCH ×4 (05:48→21:06)
[2018-06-03] MEDS ORDERED: POTASSIUM CL 10 MEQ TAB PO ONE (07:49)
[2018-06-03] MEDS ORDERED: MAGNESIUM SULF 1 GM/DEXTROSE 100 ML IV ONE (07:51)
--- NOTE | 2018-06-03 08:34 | WOCRNPDOC ---
WOCRN Advanced Assessment Note - Skin Integrity Problem, Advanced Assess Left Heel Pressure Injury Dressing Type: Allevyn Life Dressing Description: Intact, Shadowed Exudate Amount: Minimal Exudate Color: Yellow Exudate Characteristic(s): Cloudy Integumentary Issue Intervention: Dressing Removed Orya Wound Tissue: Erythema, Macerated, Non-blanching, Denuded Roya Wound Swelling: None Wound Bed Constitution: Mixed Loose & Adhered Slough/Eschar (100%) Site Measurement - Head-to-Toe Length X Width X Depth (cm): 3.8x3.2xnecrotic tissue (medial pressure injury), [id number] sanguenous blister (lateral pressure injury). Pressure Injury Stage: Unstageable (medial), Deep Tissue Injury (DTI) (lateral) Pressure Injury Present on Admit: No Skin Integrity Problem Comment: Unstagable pressure injury on medial heel is likely several weeks old and is moist and draining. Autolytic debridement will be continued at this point. The sangenous blister (deep tissue injury) on the lateral heel is a new wound only a few days old and still has an intact roof. Please keep offloading boots on patient at all times. Wound care will follow up again next week.
[2018-06-03] MEDS: SPIRONOLACTONE 50 MG TAB PO SCH (08:48)
[2018-06-03] MEDS: FAMOTIDINE 20 MG TAB PO SCH (08:48)
[2018-06-03] MEDS ORDERED: FUROSEMIDE 40 MG TAB PO SCH (09:00)
[2018-06-03] MEDS: SENNOSIDES/DOCUSATE SODIUM TAB PO SCH ×2 (10:49→21:16)
[2018-06-03] MEDS: LACTULOSE 20 GM/30 ML UDCUP PO SCH ×3 (10:49→18:52)
--- NOTE | 2018-06-03 14:44 | ASMTCMCOM ---
CM Note CM Note Notes: CM contacted [facility] to ensure they received referral. They have and are awaiting decision on whether pt and family want to proceed with this. CM to follow. D/C Plan: [facility] and possibly [facility] Date Signed: 06/03/2018 02:44 PM Electronically Signed By:Vikki Gloria
--- NOTE | 2018-06-03 16:03 | HOSPPROG ---
Hospitalist Progress Note Assessment/Plan: DIAGNOSES: * acute septic shock from cellulitis and/or pneumonia * acute kidney injury due to above * cellulitis of leg * acute hypoxemic respiratory failure * acute decompensation of cirrhosis with hepatic encephalopathy * acute metabolic acidosis * acute AFib with rapid ventricular rate * moderate protein calorie nutrition * anemia, thrombocytopenia, coagulopathy, all largely due to chronic liver disease but aggravated by acute illness * long history of IV drug use * chronic hepatitis-C virus new * tobacco abuse * deconditioning weakness gait instability fall risk PLANS: * Continue current treatment plans * PT and OT * Continue discharge planning, patient at this point in need of ongoing therapies probably need fdc facility Seen by me on hospitals rounds as well as multidisciplinary rounds, 3 visits altogether today Feels well overall Admits he is weak Wants to go home OBJECTIVE Vitals reviewed: Stable without fever 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, 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: Sinus Exam: alert oriented skin warm dry color ok resps not labored lungs clear BSs heart regular abd soft nondistended nontender, bowel sounds present limbs warm, mild edema iv site ok Lab data: Normal B12 level Continued improvement in BUN Platelets a bit better at 70 Objective: Vital Signs Temp Pulse Resp BP Pulse Ox 36.3 C 75 24 H 111/64 94 06/03/18 11:27 06/03/18 11:39 06/03/18 11:39 06/03/18 11:27 06/03/18 11:39 Laboratory Results 06/03/18 05:30 06/03/18 05:30 06/02/18 06/03/18 06/04/18 06:59 06:59 06:59 Intake Total 1300 1100 Output Total 4160 6275 750 Balance -6420 -1524 -750 PT 25.9 SEC (12.0-15.0) H 05/28/18 05:35 INR 2.37 (0.83-1.16) H 05/28/18 05:35 - Time Spent With Patient Time Spent with Patient: greater than 35 minutes Time Spent with Patient: Greater than 35 minutes spent on this patients care, greater than 50% of time spent counseling, educating, and coordinating care regarding the above mentioned plan. ICD10 Worksheet Patient Problems: Problems Problem Status Onset CHF (congestive heart failure) Acute Elevated troponin Acute Sepsis Acute Closed fracture of clavicle Active Abscess of arm, right Acute
[2018-06-04] MEDS: IPRATROPIUM/ALBUTEROL 3 ML DEYVIAL IH SCH ×4 (05:45→20:53)
[2018-06-04] MEDS: LACTULOSE 20 GM/30 ML UDCUP PO SCH ×2 (08:29→17:16)
[2018-06-04] MEDS: SPIRONOLACTONE 50 MG TAB PO SCH (08:30)
[2018-06-04] MEDS: SENNOSIDES/DOCUSATE SODIUM TAB PO SCH ×2 (08:30→21:15)
[2018-06-04] MEDS: FAMOTIDINE 20 MG TAB PO SCH (08:30)
[2018-06-04] MEDS ORDERED: MAGNESIUM SULF 1 GM/DEXTROSE 100 ML IV ONE (08:42)
--- NOTE | 2018-06-04 18:35 | HOSPPROG ---
Hospitalist Progress Note Assessment/Plan: DIAGNOSES: * acute septic shock from cellulitis and/or pneumonia * acute kidney injury due to above * cellulitis of leg * acute hypoxemic respiratory failure * acute decompensation of cirrhosis with hepatic encephalopathy * acute metabolic acidosis * acute AFib with rapid ventricular rate * moderate protein calorie nutrition * anemia, thrombocytopenia, coagulopathy, all largely due to chronic liver disease but aggravated by acute illness * long history of IV drug use * chronic hepatitis-C virus new * tobacco abuse * deconditioning weakness gait instability fall risk PLANS: * Continue current treatment plans * PT and OT * DISPOSITION: This point patient is stable for transfer to chcf facility but they are unable to take him this afternoon, plan on transfer to chcf facility June 05 Seen by me on hospitals rounds as well as multidisciplinary rounds, 3 visits altogether today Feels well overall Admits he is weak Wants to go home, but beginning to understand that he is not ready at OBJECTIVE Vitals reviewed: Stable without fever 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, 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: Sinus Exam: alert oriented skin warm dry color ok resps not labored lungs clear BSs heart regular abd soft nondistended nontender, bowel sounds present limbs warm, mild edema iv site ok Lab data: Improved hemoglobin on CBC, platelets also improved On chemistry improved CO2 levels, stable renal function and magnesium is now up in normal range Objective: Vital Signs Temp Pulse Resp BP Pulse Ox 36.7 C 75 18 115/63 100 06/04/18 16:14 06/04/18 16:14 06/04/18 16:14 06/04/18 16:14 06/04/18 16:14 Laboratory Results 06/04/18 05:15 06/04/18 17:23 06/03/18 06/04/18 06/05/18 06:59 06:59 06:59 Intake Total 1100 480 770 Output Total 3425 2650 1000 Balance -2325 -2170 -230 PT 25.9 SEC (12.0-15.0) H 05/28/18 05:35 INR 2.37 (0.83-1.16) H 05/28/18 05:35 ICD10 Worksheet Patient Problems: Problems Problem Status Onset CHF (congestive heart failure) Acute Elevated troponin Acute Sepsis Acute Closed fracture of clavicle Active Abscess of arm, right Acute
[2018-06-04] MEDS: MUPIROCIN 2% 22 GM OINT TP PRN (21:23)
[2018-06-05] MEDS: IPRATROPIUM/ALBUTEROL 3 ML DEYVIAL IH SCH ×3 (05:05→16:17)
[2018-06-05] MEDS ORDERED: MAGNESIUM SULF 1 GM/DEXTROSE 100 ML IV ONE (08:13)
[2018-06-05] MEDS: SPIRONOLACTONE 50 MG TAB PO SCH (09:56)
[2018-06-05] MEDS: FAMOTIDINE 20 MG TAB PO SCH (09:56)
[2018-06-05] MEDS: SENNOSIDES/DOCUSATE SODIUM TAB PO SCH (10:59)
--- NOTE | 2018-06-05 13:54 | PDDCSUM ---
Discharge Summary Discharge Summary: This is a 67 yo male that was admitted with septic shock from cellulitis and pneumonia. He was admitted and treated with IV abx. He has completed his abx course at this point. He had acute respiratory failure and this has resolved. He is now at this baseline of 2 L o2. He is now better and ready for d/c to SNF He has advance liver disease with an INR of 2.37. He does not have any e/o bleeding. His volume status has been optimized with Aldactone alone. He did not require paracentesis He is now on 2 L2 o2 and resp milligan is optimized His VSS are stable. Miles has been removed and he is voiding freely DIAGNOSES: * acute septic shock from cellulitis and/or pneumonia * acute kidney injury due to above * cellulitis of leg * acute hypoxemic respiratory failure * acute decompensation of cirrhosis with hepatic encephalopathy * acute metabolic acidosis * acute AFib with rapid ventricular rate * moderate protein calorie nutrition * anemia, thrombocytopenia, coagulopathy, all largely due to chronic liver disease but aggravated by acute illness * long history of IV drug use * chronic hepatitis-C virus new * tobacco abuse * deconditioning weakness gait instability fall risk Exam: alert oriented skin warm dry color ok resps not labored lungs clear BSs heart regular abd soft nondistended nontender, bowel sounds present limbs warm, mild edema Meds: see med rec total time spent on d/c is 35 mins
--- NOTE | 2018-06-05 13:55 | PDIAF ---
- Diagnosis Diagnosis: sepsis Code Status: Full Code - Medication Management Discharge Medications: electronically signed and located in the Home Medication List. - Orders Diet Recommendation: sodium restricted Diet Texture: Dysphagia 1 - Pureed, Thin Liquids, Meds Whole in Puree Additional Instructions: Change dressing to left medial heel wound every 3 days and prn. 1. Clean with ns and gauze 2. Skin prep garret wound 3. Apply silvasorb liberally to yellow/black eschar 4. Cover with foam heel dressing. Sabina Edmondson CWON Activity: as tolerated - Follow Up Care Current Providers and Referrals: NONE *PRIMARY CARE P,. [Primary Care Provider] - As per Instructions
--- NOTE | 2018-06-05 14:53 | ASMTDCNOTE ---
Case Management Discharge Discharge Order Complete? Answers: Yes Patient to Obtain Answers: Other Notes: [facility] Transportation Arranged Answers: Other Notes: w/c with O2 arranged by Vanessa at [facility] Transport will Pick (Date 06/05/2018 05:00 PM & Time) Faxed Final Orders Answers: Yes Notes: [facility] Agency/Facility Transfer Answers: Yes Notes: to [facility] Report Printed & Faxed to Receiving Agency Family Notified Answers: Yes Notes: phone call to Jimena Discharge Comments Notes: 06/05/2018 Case Management Note Faxed final orders to [facility]. Vanessa ([phone]) from arranged 1700 transport w/c van with O2. RN to call report. Notified LAQUITA Hess on the phone. Faxed referral to [facility]. Jimena wants to discuss benefits with [facility] once pt is at [facility]. Case Management d/c poc: [facility] with [facility] to follow. Date Signed: 06/05/2018 02:53 PM Electronically Signed By:Erica De La Rosa RN
--- NOTE | 2018-06-05 14:54 | ASDISCHSUM ---
Discharge Information Plan Status:SNF Medically Cleared to Leave:06/04/2018 Discharge Date:06/04/2018 CM D/C Disposition:[facility] ADT D/C Disposition:[facility] Care Facility Projected Discharge Date:05/30/2018 11:00 AM Transportation at D/C:Wheelchair Van Discharge Delay Reason: Follow-Up Date:05/30/2018 11:00 AM Discharge Slot: Final Diagnosis:Sepsis, PNA, Leg swelling-cellulitis, R arm abscess Placement Information Referral Type:*[facility]/SNF Referral ID:[id number] Provider Name:Nahomy Grady [place] Address 1:[address] Address 2: City:[place] Selection Factors: State:[place] Referral Type:Palliative Care Referral ID:[id number] Provider Name:[facility], [facility] Address 1:[address] [facility] [address] Address 2: City:[place] Selection Factors: State:[place] Patient Contact Information Contact Name:MARCIA Relationship:Sister Address: Work Phone: City:[place] Alternate Phone: [facility]/Zip Code:[place] [address] Email: Financial Information Financial Class:Medicare Primary Plan Desc:MEDICARE INPATIENT Primary Plan Number:[id number] Secondary Plan Desc: Secondary Plan Number: Assessment Information LACE LACE Length of stay for Answers: 7-13 days current admission Acuity / Level of Answers: Yes Care: Did the patient have an inpatient admission? Comorbidities - select Answers: Chronic pulmonary disease all that apply Opioid dependence / Chronic pain # of Emergency department Answers: 1-2 visits in the last 6 months Social determinants Answers: History of substance abuse (ETOH, street drugs, prescription drugs, etc.) Score: 18 Date Signed: 06/05/2018 02:51 PM Electronically Signed By:Erica De La Rosa RN [facility] CM Progress Note CM Note CM Note Notes: 67yo male admitted for Sepsis, PNA, Leg swelling-cellulitis, R arm abscess. He has a Hx of IVDA x 30yrs-heroin, Opioid dependent, a smoker, COPD, CHF. Patient came in very dirty and had to be scrubbed in order to be examined. Therapies will need to eval his mobility. CM to follow. Date Signed: 05/27/2018 09:40 AM Electronically Signed By:Sonia Diego LCSW [facility] CM Progress Note CM Note CM Note Notes: This CM made an Adult Protection Report due to self neglect very dirty, undernourished. Patient wanted his sister to make medical decisions. Contact made of sister-Jimena Miguel- [address] [place] [address]. She would happy to serve as her brother's MPOA. Patient too sleepy to sign forms this afternoon, will try again Sunday. Date Signed: 05/27/2018 04:29 PM Electronically Signed By:Sonia Diego LCSW [facility] CM Progress Note CM Note CM Note Notes: Met with pt and completed MPOA, copies in chart. Provided education on SNF. Pt agreeable to referral. CM spoke with Fariba about Medicaid application. CM completed PASAR. CM submit referrals for [facility], [facility], [facility], [facility], and [facility]. CM to follow. Date Signed: 05/28/2018 03:48 PM Electronically Signed By:CHRIS Iniguez [facility] CM Progress Note CM Note CM Note Notes: Spoke with Elizabeth from [facility] and they have accepted the patient for rehab. Elizabeth met with the patient today and he is in agreement to go to [facility] when he is ready for discharge. Wound care note faxed to Elizabeth. Patient will most likely be ready for discharge around Sunday of this week. CM will follow. Date Signed: 05/29/2018 02:46 PM Electronically Signed By:Oanh Beaver LCSW [facility] Progress Note CM Note CM Note Notes: 05/31/2018 Case Management Note Briefly discussed with this morning. Updated [facility] on pt. Amie from noted that [facility] is the only palliative agency contracted with . [facility] and [facility] in addition to [facility] are available if needed. Will await instructions from or [facility] palliative team members before sending referrals. See note from 05/31 for contact info for [facility]. Case Management d/c poc: return to [facility] with palliative or hospice support. Case Management to follow. Date Signed: 05/31/2018 01:52 PM Electronically Signed By:Erica De La Rosa RN [facility] Progress Note CM Note CM Note Notes: 06/02/2018 Case Management Note Discussed with RN. Discharge is possible mid to late week. Faxed [facility] updates. Noted Palliative order. See note for information re: palliative consult. Case Management d/c poc: [facility] possibly with Palliative Care. [facility] is only provider at [facility]. Date Signed: 06/02/2018 01:39 PM Electronically Signed By:Erica De La Rosa RN [facility] Progress Note CM Note CM Note Notes: CM contacted [facility] to ensure they received referral. They have and are awaiting decision on whether pt and family want to proceed with this. CM to follow. D/C Plan: [facility] and possibly [facility] Date Signed: 06/03/2018 02:44 PM Electronically Signed By:Vikki Gloria Case Management Discharge Plan Note Case Management Discharge Discharge Order Complete? Answers: Yes Patient to Obtain Answers: Other Notes: [facility] Transportation Arranged Answers: Other Notes: w/c with O2 arranged by Vanessa at [facility] Transport will Pick (Date 06/05/2018 05:00 PM & Time) Faxed Final Orders Answers: Yes Notes: [facility] Agency/Facility Transfer Answers: Yes Notes: to [facility] Report Printed & Faxed to Receiving Agency Family Notified Answers: Yes Notes: phone call to Jimena Discharge Comments Notes: 06/05/2018 Case Management Note Faxed final orders to [facility]. Vanessa ([phone]) from arranged 1700 transport w/c van with O2. RN to call report. Notified LAQUITA Hess on the phone. Faxed referral to [facility]. Jimena wants to discuss benefits with [facility] once pt is at [facility]. Case Management d/c poc: [facility] with [facility] to follow. Date Signed: 06/05/2018 02:53 PM Electronically Signed By:Erica De La Rosa RN Intervention Information Intervention Type:*IM-Signed Date of Service:06/05/2018 02:27 PM Patient Type:Inpatient Staff Member:OZZIE De La Rosa, Erica Hours: Discipline: Severity: Comment:
[2018-06-05 16:01] VITALS: BP 139/80
== END 2018-06-05 18:29 | DRG 871 ==
LOC: EEVIPCON 19:59 → F2N 22:15 → F2W 05-30 05:42
PROVIDERS: ADMIT Internal Medicine; ATTEND Internal Medicine
PROC: 05H633Z Insertion of Infusion Device into Left Subclavian Vein, Percutaneous Approach (ICD-10-PCS; 2018-05-27)
PROC: 02HV33Z Insertion of Infusion Device into Superior Vena Cava, Percutaneous Approach (ICD-10-PCS; principal; 2018-05-31)
DX: A41.9 Sepsis, unspecified organism (principal); R65.21 Severe sepsis with septic shock; L03.115 Cellulitis of right lower limb; L03.116 Cellulitis of left lower limb; J18.9 Pneumonia, unspecified organism; J96.01 Acute respiratory failure with hypoxia; N17.9 Acute kidney failure, unspecified; L89.620 Pressure ulcer of left heel, unstageable; I48.91 Unspecified atrial fibrillation; E44.0 Moderate protein-calorie malnutrition; D68.4 Acquired coagulation factor deficiency; B19.20 Unspecified viral hepatitis C without hepatic coma; K74.60 Unspecified cirrhosis of liver; K72.90 Hepatic failure, unspecified without coma; D69.6 Thrombocytopenia, unspecified; E87.5 Hyperkalemia; E83.42 Hypomagnesemia; E87.2 Acidosis; I50.9 Heart failure, unspecified; J44.9 Chronic obstructive pulmonary disease, unspecified; F11.20 Opioid dependence, uncomplicated; F17.210 Nicotine dependence, cigarettes, uncomplicated; Z23 Encounter for immunization; Z99.81 Dependence on supplemental oxygen
CPT/HCPCS: 82607-90; 84484-PO; 92526-GN; 92610-GN; 96374; 97110-GP; 97116-GP; 97162-GP; 97166-GO; 97530-GO; 97530-GP; 97535-GO; C1751; G0008; G0009; G0472; G0480; G8978-GP-CL; G8979-GP-CJ; G8980-GP-CJ; G8987-GO-CL; G8988-GO-CJ; G8996-GN-CJ; G8997-GN-CI; J0153; J0282; J0610; J0696; J1170; J1644; J1815; J1940; J2060; J2543; J3370; J3475; J3480; J7613; P9047; Q9967

== ENCOUNTER 2018-06-13 07:08 | Emergency (ER) | payer OTHER ==
--- NOTE | 2018-06-13 07:25 | EDPHY ---
H & P Time Seen by Provider: 06/13/18 07:12 HPI/ROS: CHIEF COMPLAINT: Own overdose HISTORY OF PRESENT ILLNESS: EMS was called by police to the patient's home for heroin overdose. He had to empty syringe is next to him and admitted to paramedics that he had used them to get high. He was not intending to kill himself. He has a over 30 year history of IV heroin abuse. He was discharged from the hospital about a week ago after being admitted for sepsis, pneumonia and left leg cellulitis as well as an abscess on his right arm. At that time case management was involved as well as Adult protective Services because the patient has history of self neglect. He was discharged to [facility]. This morning he eloped from a [facility] and went back to his apartment to use heroin. Police initially got involved when he eloped from [facility] and found him at has an apartment. He was hypoxic and had respiratory rate of 4 when paramedics arrived. They gave 2 mg Narcan intranasally and 2 mg IM and he is now alert and oriented. He also has a history of COPD and is on home oxygen as well as CHF. Paramedics state that his house was full of trash in covered in feces which appears to be consistent with previous social work notes. Severity: Moderate Modifying factors: The none REVIEW OF SYSTEMS: Not cooperative with questioning patient states he has no complaints EXAM: GENERAL: Disheveled, dirty, HEAD: Atraumatic, normocephalic. Small cyst to right scalp patient states has been there for years EYES: Pupils equal round and reactive to light, extraocular movements intact, sclera anicteric, conjunctiva are normal. ENT: TMs normal, nares patent, oropharynx clear without exudates. Moist mucous membranes. NECK: Normal range of motion, supple without lymphadenopathy or JVD. LUNGS: Breath sounds clear to auscultation bilaterally and equal. No wheezes rales or rhonchi. HEART: Regular rate and rhythm without murmurs, rubs or gallops. ABDOMEN: Soft, nontender, normoactive bowel sounds. No guarding, no rebound. No masses appreciated. BACK: No CVA tenderness, no spinal tenderness, step-offs or deformities EXTREMITIES: Normal range of motion, no pitting or edema. No clubbing or cyanosis. No visible cellulitis NEUROLOGICAL: Cranial nerves II through XII grossly intact. Normal speech, normal gait. 5/5 strength, normal movement in all extremities, normal sensation , normal reflexes PSYCH: Normal mood, normal affect. SKIN: Several small wounds appear to be well healing. Source: Patient, EMS Exam Limitations: No limitations - Personal History Tetanus Vaccine Date: <10YRS - Medical/Surgical History Hx Asthma: No Hx Chronic Respiratory Disease: Yes Hx Diabetes: No Hx Cardiac Disease: No Hx Renal Disease: No Hx Cirrhosis: No Hx Alcoholism: No Hx HIV/AIDS: No Hx Splenectomy or Spleen Trauma: No Other PMH: CHF, COPD,. 30 years IV heroin abuse - Family History Significant Family History: No pertinent family hx - Social History Smoking Status: Current every day smoker Drug Use: Heroin Constitutional: Initial Vital Signs Heart Rate 98 06/13/18 07:08 Respiratory Rate 12 06/13/18 07:08 Blood Pressure 138/83 H 06/13/18 07:08 O2 Sat (%) 91 L 06/13/18 07:08 O2 Delivery Mode Room Air O2 (L/minute) 2.5 Allergies/Adverse Reactions: No Known Allergies Allergy (Verified 06/13/18 07:17) Medical Decision Making ED Course/Re-evaluation: Patient is medically stable. He is primarily a social problem. [facility] does not [facility]. [facility]. I do not think that there is any way to force him away from this lifestyle. He tells me that he wants to moved to [place] where he has place to stay because he is starting to get into trouble here in [place] 9:00 a.m. We have observed the patient from most 2 hr. He continues to do well. He is medically stable. detention called and stated that he is welcome to come back there. The patient does not wish to go back there. I do not think that we can force him to return there in voluntarily. Will have case management weigh in. 9:50 a.m. the patient has evaluated by case management. He is now agreeable to return to [facility]. We will transfer back there. Differential Diagnosis: Partial list of the Differential diagnosis considered include but were not limited to; heroin overdose, suicidality and although unlikely based on the history and physical exam, I also considered infection, sepsis, cardiac disease , COPD exacerbation. Departure - Departure Disposition: Home, Routine, Self-Care Clinical Impression: Heroin abuse COPD (chronic obstructive pulmonary disease) Qualifiers: COPD type: unspecified COPD Qualified Code(s): J44.9 - Chronic obstructive pulmonary disease, unspecified Condition: Fair Instructions: COPD (Chronic Obstructive Pulmonary Disease) (ED), Opioid Use Disorder (ED) Referrals: Patient,NotPresent [Unknown] - As per Instructions
[2018-06-13 11:12] VITALS: BP 118/71
--- NOTE | 2018-06-13 12:00 | ASMTCMCOM ---
CM Note CM Note Notes: Patient presents to the ED via EMS from home this morning after leaving [facility] early this morning. See ED report for details. Patient was discharged from [facility] on 06/05 to (see CM notes and D/C summary from same date). Chart reviewed. Patient is alert, pleasant, and cooperative. He is open to talking about his decision to leave and admits to using heroin after doing so. He tells me that he would be open to going back to and staying for the "2 weeks" which were originally planned, but that he would ultimately like to move to [place]. This CM contacted Kenan in admissions at to confirm return transportation to . I have LM with Srinivasa adoption social worker at as well. Patient has a long history of opiod dependence and heroin abuse. He is open about this. He denies leaving [facility] "to use", but states that he left because he needed to go to an [facility] and "they kept telling me they would take me but never did". Given that patient DID use this morning, I encouraged patient to consider or ask about MAT (medication assisted therapy). Patient admits this could be a good idea and is open to considering this. He has given this CM verbal permission to discuss this further with his sister Jimena and [facility] . I have spoken with Jimena and informed her of patient's ED visit and plans to return to . I informed Jimena that I was reaching out to Srinivasa at (adoption social worker) re recommendation to consider MAT. This CM did speak with Srinivasa prior to patient's return to . Srinivasa will follow up with patient, Jimena, and P to discuss plans to move forward with MAT Date Signed: 06/13/2018 11:59 AM Electronically Signed By:Keisha Wynne RN
== END 2018-06-13 11:33 | disposition home or self-care (01) ==
LOC: EDUNIT#
DX: F11.10 Opioid abuse, uncomplicated (principal); J44.9 Chronic obstructive pulmonary disease, unspecified; I50.9 Heart failure, unspecified; F17.200 Nicotine dependence, unspecified, uncomplicated